=== PATIENT | female | born 1995 | race American Indian/Alaskan Native ===

== ENCOUNTER 2017-12-25 11:11 | Emergency (ER) | payer BC ==
[2017-12-25 11:16] VITALS: TEMP 98.2; O2SAT 100
[2017-12-25] MEDS ORDERED: Sodium Chloride 0.9% 1,000 ML IV SCH ×2 (12:15→14:00)
[2017-12-25 12:39] LABS: BASO % 0.4 % (0.0-2.0); EOS % 0.1 % (0.0-4.0); HEMOGLOBIN 12.3 g/dL (12.0-16.0); MEAN CELL VOLUME 92.6 fl (81.0-99.0); MEAN CORPUSCULAR HEMOGLOBIN 31.9 pg (27.0-31.0); MEAN CORPUSCULAR HGB CONC 34.4 g/dL (33.0-37.0); MEAN PLATELET VOLUME 6.8 fl (7.2-11.7); MONO # 0.4 K/uL (0.0-0.8); MONO % 4.7 % (0.0-10.0); NEUT % 82.8 % (50.0-75.0); NRBC % 0.1 % (0.0-0.0); RBC 3.87 Mil/uL (3.80-5.20); RED CELL DISTRIBUTION WIDTH 16.2 % (11.5-14.5); WHITE BLOOD COUNT 8.5 K/uL (4.8-10.8)
--- NOTE | 2017-12-25 12:40 | ED PDOC ---
HPI:Nausea, Vomiting, Diarrhea Time Seen by Provider: 12/25/17 11:47 Chief Complaint (Nursing): GI Problem Chief Complaint (Provider): GI Problem History Per: Patient History/Exam Limitations: no limitations Onset/Duration Of Symptoms: Days (x 1) Associated Symptoms: Nausea, Vomiting. denies: Fever, Chills, Diarrhea Additional Complaint(s): 22 years old, [id number] female presents to the ED today for evaluation of numerous episodes of vomiting associated with nausea since 20:00 yesterday. Patient states care compliance with her [employer] provider, Dr. Charlton , as this is her first . She denies fever, chills, abdominal pain, diarrhea, dysuria or hematuria. LMP: 10/25/2017 PCP: Hank Barakat Past Medical History Vital Signs: Last Vital Signs Temp 98.2 F 12/25/17 11:14 Pulse 87 12/25/17 11:14 Resp 16 12/25/17 11:14 BP 108/71 12/25/17 11:14 Pulse Ox 100 12/25/17 11:14 - Medical History PMH: No Chronic Diseases - Surgical History Surgical History: No Surg Hx - Family History Family History: States: Unknown Family Hx - Home Medications Home Medications: Ambulatory Orders Medication Instructions Recorded Ondansetron ODT [Zofran ODT] 4 mg PO Q6 PRN #20 tab 12/25/17 - Allergies Allergies/Adverse Reactions: Allergies Allergy/AdvReac Type Severity Reaction Status Date / Time No Known Allergies Allergy Verified 12/25/17 11:14 Review of Systems ROS Statement: Except As Marked, All Systems Reviewed And Found Negative Constitutional: Negative for: Fever, Chills Gastrointestinal: Positive for: Nausea, Vomiting. Negative for: Abdominal Pain , Diarrhea Genitourinary Female: Negative for: Dysuria, Hematuria, Other (Bilious urine) Physical Exam - Reviewed Nursing Documentation Reviewed: Yes Vital Signs Reviewed: Yes - Physical Exam Appears: Positive for: Non-toxic, No Acute Distress Head Exam: Positive for: ATRAUMATIC, NORMOCEPHALIC Skin: Positive for: Normal Color, Warm, Dry Eye Exam: Positive for: EOMI, PERRL Neck: Positive for: Painless ROM, Supple Cardiovascular/Chest: Positive for: Regular Rate, Rhythm Respiratory: Positive for: Normal Breath Sounds. Negative for: Decreased Breath Sounds, Accessory Muscle Use, Wheezing, Respiratory Distress Gastrointestinal/Abdominal: Positive for: Soft. Negative for: Tenderness, Organomegaly, Mass, Distended, Guarding, Rebound Back: Positive for: Normal Inspection. Negative for: L CVA Tenderness, R CVA Tenderness Extremity: Positive for: Normal ROM. Negative for: Pedal Edema Neurologic/Psych: Positive for: Alert, Oriented (x 3), Gait (steady in ED) - Laboratory Results Result Diagrams: 12/25/17 12:36 12/25/17 12:36 Urine POC: Positive Urine dip results: Positive for: Leukocyte Esterase (trace), Blood (trace), Ketones (40), Protein (100). Negative for: Nitrate, Glucose, Bilirubin - ECG O2 Sat by Pulse Oximetry: 100 (RA) Pulse Ox Interpretation: Normal Medical Decision Making Medical Decision Making: Initial Impression:Vomiting in Initial Plan: --Beta HCG --CMP -- test (urine, POC) --Urine dipstick (POC) --CBC --NS 1,000 ml IV --Zofran 8 mg PO 1315 Udip reviewed. U/A and urine culture ordered. 1400 Labs reviewed and grossly unremarkable. Carbon dioxide 21. Additional 1L NS ordered. Beta Quant: 122,820.00 1500 Patient reports mild nausea. Reglan 10mg ordered. 1730 Patient tolerating PO intake without difficulty. On re-evaluation, patient reports improvement of symptoms, denies any curent nausea, abdominal pain, of vaginal bleeding. On exam, patient remains AAOx3, in no acute distress. Lungs clear to auscultation, cardiac RRR, abdomen soft, non- tender, repeat neuro exam shows no focal findings. VSS. Repeat HR: 75 Repeat BP: 112/77 Repeat O2: 100% on RA Lab/Diagnostic results d/w the patient in great detail. Diagnosis of vomiting in d/w the patient. Patient states she has an upcoming OBGYN appt on 12/29/17. Based on history, exam and diagnostic results, plan will be for outpatient follow up. Patient instructed to follow-up with pmd / referral provided / the clinic in 1- 2 days without fail. Advised to take medication as prescribed. Return to the emergency room at any time for any new or worsening symptoms. Patient states she fully agrees with and understands discharge instructions. States that she agrees with the plan and disposition. Verbalized and repeated discharge instructions and plan. I have given the patient opportunity to ask any additional questions. Scribe Attestation: Documented by Sara Bosch acting as a scribe for Perlita Lentz PA-C. Provider Scribe Attestation: All medical record entries made by the Scribe were at my direction and personally dictated by me. I have reviewed the chart and agree that the record accurately reflects my personal performance of the history, physical exam, medical decision making, and the department course for this patient. I have also personally directed, reviewed, and agree with the discharge instructions and disposition. Disposition - Clinical Impression Clinical Impression: Vomiting affecting - Patient ED Disposition Is Patient to be Admitted: No Counseled Patient/Family Regarding: Studies Performed, Diagnosis, Need For Followup, Rx Given - Disposition Referrals: Hank Barakat MD [Staff Provider] - Disposition: Routine/Home Disposition Time: 17:42 Condition: STABLE Prescriptions: Ondansetron ODT [Zofran ODT] 4 mg PO Q6 PRN #20 tab PRN Reason: Nausea/Vomiting Instructions: Hyperemesis Gravidarum, Cutler Diet, Nausea and Vomiting of Forms: [employer] (Danish), [facility] ED School/Work Excuse Print Language: CHILEAN - POA Present On Arrival: None Results - Lab Results Lab Results: 12/25/17 12/25/17 12:36 12:36 WBC 8.5 RBC 3.87 Hgb 12.3 Hct 35.9 MCV 92.6 MCH 31.9 H MCHC 34.4 RDW 16.2 H Plt Count 387 MPV 6.8 L Neut % (Auto) 82.8 H Lymph % (Auto) 12.0 L [place] % (Auto) 4.7 Eos % (Auto) 0.1 Baso % (Auto) 0.4 Neut # (Auto) 7.0 Lymph # (Auto) 1.0 [place] # (Auto) 0.4 Eos # (Auto) 0.0 Baso # (Auto) 0.0 Sodium 141 Potassium 4.0 Chloride 101 Carbon Dioxide 21 L Anion Gap 23 H BUN 9 Creatinine 0.5 L Est GFR ( Amer) > 60 Est GFR (Non-Af Amer) > 60 Random Glucose 98 Calcium 10.1 Total Bilirubin 0.5 AST 35 ALT 36 Alkaline Phosphatase 45 Total Protein 9.1 H Albumin 4.5 Globulin 4.5 H Albumin/Globulin Ratio 1.0 Beta HCG, Quant [id number]
[2017-12-25 12:52] LABS: ALBUMIN 4.5 g/dL (3.5-5.0); ALT/SGPT 36 U/L (9-52); AST/SGOT 35 U/L (14-36); BLOOD UREA NITROGEN 9 mg/dl (7-17); CALCIUM 10.1 mg/dL (8.4-10.2); GFR AFRICAN-AMERICAN > 60; GFR NON-AFRICAN AMERICAN > 60
[2017-12-25] MEDS ORDERED: Metoclopramide 10 mg/10 ml Cup PO STA (15:25)
[2017-12-25 16:42] VITALS: BP 112/77; PULSE 75; RESP 14
== END 2017-12-25 18:11 | disposition home or self-care (01) ==
LOC: H.ER 11:11
DX: O21.9 Vomiting of pregnancy, unspecified (principal)
CPT/HCPCS: 80053; 81025; 84702; 85025; 87086; 99284; J7040

== ENCOUNTER 2018-01-01 11:52 | Inpatient (IN) | payer BC ==
[2018-01-01] MEDS ORDERED: Sodium Chloride 0.9% 1,000 ML IV STA (13:03)
--- NOTE | 2018-01-01 13:03 | ED PDOC ---
HPI: Female Pain <JdHank Scott - Last Filed: 01/01/18 15:12> Chief Complaint (Provider): VAGINAL BLEEDING History Per: Patient (22 Y/O G1PO LMP 11/04/2017 APPROX 9 WEEK GESTATION HERE FOR EVALUATION OF VAGINAL SPOTTING AND CRAMPY PAIN. DENIES ANY FEVERS/CHILLS.) <Saundra Peralta - Last Filed: 01/01/18 15:22> Time Seen by Provider: 01/01/18 13:02 Chief Complaint (Nursing): Female Genitourinary Past Medical History Vital Signs: Last Vital Signs Temp 98 F 01/01/18 12:18 Pulse 95 H 01/01/18 12:18 Resp 16 01/01/18 12:18 BP 123/72 01/01/18 12:18 Pulse Ox 100 01/01/18 13:03 <Hank Miles - Last Filed: 01/01/18 15:12> Reviewed: Historical Data, Nursing Documentation, Vital Signs Vital Signs: Last Vital Signs Temp 98 F 01/01/18 12:18 Pulse 95 H 01/01/18 12:18 Resp 16 01/01/18 12:18 BP 123/72 01/01/18 12:18 Pulse Ox 100 01/01/18 12:18 - Family History Family History: States: Unknown Family Hx <Saundra Peralta - Last Filed: 01/01/18 15:22> - Home Medications Home Medications: Ambulatory Orders Medication Instructions Recorded Ondansetron ODT [Zofran ODT] 4 mg PO Q6 PRN #20 tab 12/25/17 Nitrofurantoin Macrocrystals 100 mg PO BID #14 cap 01/01/18 [Macrobid] - Allergies Allergies/Adverse Reactions: Allergies Allergy/AdvReac Type Severity Reaction Status Date / Time No Known Allergies Allergy Verified 12/25/17 11:14 Review of Systems ROS Statement: Except As Marked, All Systems Reviewed And Found Negative <Saundra Peralta - Last Filed: 01/01/18 15:22> Physical Exam - Reviewed Nursing Documentation Reviewed: Yes Vital Signs Reviewed: Yes - Physical Exam Appears: Positive for: Well, Non-toxic, No Acute Distress Head Exam: Positive for: ATRAUMATIC, NORMAL INSPECTION, NORMOCEPHALIC Skin: Positive for: Normal Color, Warm, DRY Eye Exam: Positive for: EOMI, Normal appearance, PERRL ENT: Positive for: Normal ENT Inspection Neck: Positive for: Normal, Painless ROM Cardiovascular/Chest: Positive for: Regular Rate, Rhythm Respiratory: Positive for: CNT, Normal Breath Sounds Gastrointestinal/Abdominal: Positive for: Normal Exam, Soft Back: Positive for: Normal Inspection Extremity: Positive for: Normal ROM Neurologic/Psych: Positive for: Alert, Oriented <Saundra Peralta - Last Filed: 01/01/18 15:22> - Laboratory Results Result Diagrams: 01/01/18 13:40 01/01/18 14:30 <Hank Miles - Last Filed: 01/01/18 15:12> - Laboratory Results Result Diagrams: 01/01/18 13:40 01/01/18 14:30 Urine dip results: Positive for: Leukocyte Esterase, Blood - ECG O2 Sat by Pulse Oximetry: 100 (RA) Pulse Ox Interpretation: Normal - Progress ED Course And Treament: type O positive is architect US: 9 weeks 1 day: FHR 176; corpus luteal cyst NS 1 liter wide open <Saundra Peralta - Last Filed: 01/01/18 15:22> Medical Decision Making Medical Decision Making: Time: 1340 Plan: -- Type and Screen -- BMP -- Beta-HCG Quantitative -- CBC (with differentials) -- Sodium Chloride 500 mls/hr -- OB Transvaginal US Scribe Attestation: Documented by Elza Thompson, acting as a scribe for Dr. Saundra Peralta PA-C. Provider Scribe Attestation: All medical record entries made by the Scribe were at my direction and personally dictated by me. I have reviewed the chart and agree that the record accurately reflects my personal performance of the history, physical exam, medical decision making, and the department course for this patient. I have also personally directed, reviewed, and agree with the discharge instructions and disposition. <Saundra Peralta - Last Filed: 01/01/18 15:22> Disposition <Hank Miles - Last Filed: 01/01/18 15:12> - Patient ED Disposition Is Patient to be Admitted: No - Disposition Disposition: Routine/Home Disposition Time: 15:20 <Peralta,Setu B - Last Filed: 01/01/18 15:22> - Clinical Impression Clinical Impression: Threatened miscarriage, Corpus luteum cyst - Disposition Condition: FAIR Prescriptions: Nitrofurantoin Macrocrystals [Macrobid] 100 mg PO BID #14 cap Instructions: Bleeding With (DC), Ovarian Cyst (DC) Forms: [employer] ([place] Island[place]), [facility] ED School/Work Excuse
[2018-01-01 13:49] LABS: BASO # 0.1 K/uL (0.0-0.2); EOS # 0.1 K/uL (0.0-0.7); EOS % 1.3 % (0.0-4.0); HEMOGLOBIN 12.6 g/dL (12.0-16.0); LYMPH # 2.2 K/uL (1.0-4.3); LYMPH % 26.6 % (20.0-40.0); MEAN CORPUSCULAR HEMOGLOBIN 31.5 pg (27.0-31.0); MEAN CORPUSCULAR HGB CONC 33.6 g/dL (33.0-37.0); MONO # 0.7 K/uL (0.0-0.8); NEUT # 5.3 K/uL (1.8-7.0); NEUT % 63.1 % (50.0-75.0); NRBC % 0.1 % (0.0-0.0); RED CELL DISTRIBUTION WIDTH 16.1 % (11.5-14.5); WHITE BLOOD COUNT 8.5 K/uL (4.8-10.8)
[2018-01-01 14:54] LABS: BLOOD UREA NITROGEN 8 mg/dl (7-17); CALCIUM 9.6 mg/dL (8.4-10.2); GFR AFRICAN-AMERICAN > 60; GFR NON-AFRICAN AMERICAN > 60
--- NOTE | 2018-01-01 15:14 | US ---
PROCEDURE: OB Pelvic Ultrasound HISTORY: EVALUATION FOR THREATENED MISCARRIAGE COMPARISON: None available. FINDINGS: UTERUS: Single Live intrauterine gestation. CRL measures 26 mm equal to 9 weeks 3 days gestational age Gestational sac diameter measures 37 mm equal to 8 weeks 6 days gestational age. age (Ultrasound estimated): 9 weeks 1 day Date of delivery (Ultrasound estimated) : 08/05/2018 Heart rate: 176 bpm. Mary-gestational hemorrhage: None. 4 mm yolk sac visualized. Uterus measures 9.4 x 6.3 x 7.7 cm. No mass CERVIX: Long and closed. No cervical abnormality seen. RIGHT OVARY: Measures 2.8 x 1.6 x 1.8 cm. No mass. Normal flow. LEFT OVARY: Measures 4.0 x 2.0 x 2.1 cm. Normal flow. Corpus luteum measuring 2.0 x 1.7 x 1.7 cm identified. 2.3 cm physiologic cyst. 14 mm physiologic cyst. . FREE FLUID: Small amount of free fluid in cul-de-sac. OTHER FINDINGS: None. IMPRESSION: Single live intrauterine gestation of approximate 9 weeks 1 day gestational age. No subchorionic hemorrhage. heart rate 176. 4 mm yolk sac. Cervix long and closed.
[2018-01-01] MEDS: Lactated Ringer's 1,000 ML IV SCH (21:35)
[2018-01-01] MEDS ORDERED: Chlorhexidine Gluconate 1 APPL/PKT TP ONE (23:43)
[2018-01-02] MEDS: Lactated Ringer's 1,000 ML IV SCH (06:41)
[2018-01-02 08:05] LABS: HEMOGLOBIN 9.6 g/dL (12.0-16.0); MEAN CELL VOLUME 93.2 fl (81.0-99.0); MEAN CORPUSCULAR HEMOGLOBIN 31.7 pg (27.0-31.0); RBC 3.02 Mil/uL (3.80-5.20); RED CELL DISTRIBUTION WIDTH 16.2 % (11.5-14.5); WHITE BLOOD COUNT 12.7 K/uL (4.8-10.8)
[2018-01-02] MEDS ORDERED: cefOXitin IV 1 gm in Dextrose 1 GM/50 ML BAG IVPB ONE (08:05)
[2018-01-02] MEDS ORDERED: Oxytocin 20 units in LR 0 ML IV ONE (08:05)
[2018-01-02] MEDS ORDERED: Lidocaine 1% 5ml Abboject IV ONE (08:21)
[2018-01-02] MEDS ORDERED: Midazolam 2 MG/2 ML VIAL ONE (08:21)
[2018-01-02] MEDS ORDERED: Propofol 10 mg/ml Inj (20 ML) ONE (08:21)
[2018-01-02] MEDS ORDERED: Dexamethasone 4 mg/1 ml ONE (08:22)
[2018-01-02] MEDS ORDERED: Lactated Ringer's 1,000 ML IV ONE (09:03)
--- NOTE | 2018-01-02 09:03 | US ---
PROCEDURE: HISTORY: moderate bleeding in ED COMPARISON: TECHNIQUE: FINDINGS: Single live intrauterine gestation corresponding to 9 weeks gestational age. heart motion is observed. A portion of the gestational sac is noted in the lower uterine segment worrisome for an in progress. Recommend correlation with serial beta HCG levels and short-term interval follow-up as clinically indicated. IMPRESSION: As above.
[2018-01-02] MEDS ORDERED: Lactated Ringer's 1,000 ML IV SCH (09:45)
[2018-01-02 11:29] VITALS: RESP 18; O2SAT 100
[2018-01-02 14:19] VITALS: BP 118/69; PULSE 68; TEMP 98.6
--- NOTE | 2018-01-02 19:41 | OP ---
PROCEDURE DATE: 01/02/2018 PREOPERATIVE DIAGNOSIS: Incomplete . POSTOPERATIVE DIAGNOSIS: Incomplete . PROCEDURE: Evacuation and curettage of products. SURGEON: Hank Barakat MD TYPE OF ANESTHESIA: General anesthesia. ANESTHESIA ADMINISTERED BY: Wayne Ordoñez MD FINDINGS: Large amount of tissue coming to the os, which was sent to pathology for chromosome studies. DESCRIPTION OF PROCEDURE: With the patient in dorsal lithotomy position under general anesthesia, the patient was prepped and draped in the usual sterile manner. Straight catheter was used to emptied the bladder after which the weighted speculum placed in the posterior vagina and products are visible in the with sponge forceps and tissue was removed. Following this, a small light curettage was done to remove the any remaining tissue. Bleeding was minimal and the patient tolerated the procedure very well and was in satisfactory condition on her way to recovery room. Sample was sent to pathology for evaluation. Hank Barakat MD
== END 2018-01-02 15:25 | disposition home or self-care (01) | DRG 770 ==
LOC: H.ER 11:52 → H.ERHOLD 18:15 → H.MEDSURG1 20:57
PROVIDERS: ADMIT Specialist; ATTEND Specialist
PROC: 10D17ZZ Extraction of Products of Conception, Retained, Via Natural or Artificial Opening (ICD-10-PCS; principal; 2018-01-02 08:00)
DX: O03.4 Incomplete spontaneous abortion without complication (principal); N83.10 Corpus luteum cyst of ovary, unspecified side

== ENCOUNTER 2018-06-26 17:11 | Emergency (ER) | payer BC ==
--- NOTE | 2018-06-26 17:51 | ED PDOC ---
HPI: Abdomen Time Seen by Provider: 06/26/18 17:31 Chief Complaint (Nursing): Abdominal Pain History Per: Patient Additional Complaint(s): 23 yo female, no PMH, presents to ED for evaluation of crampy abdominal pain and spotting that started last night. Patient is 9 weeks , . 1st was spontaneous Ab ~ 8-9 w. Past Medical History Reviewed: Nursing Documentation, Vital Signs Vital Signs: Last Vital Signs Temp 98.8 F 06/26/18 17:29 Pulse 71 06/26/18 17:29 Resp 16 06/26/18 17:29 BP 111/75 06/26/18 17:29 Pulse Ox 100 06/26/18 17:29 - Medical History PMH: No Chronic Diseases Denies: HIV - Surgical History Surgical History: No Surg Hx - Family History Family History: States: Unknown Family Hx - Living Arrangements Living Arrangements: With Family - Social History Current smoker - smoking cessation education provided: No Alcohol: Social Drugs: Denies - Home Medications Home Medications: Ambulatory Orders Medication Instructions Recorded Ondansetron ODT [Zofran ODT] 4 mg PO Q6 PRN #20 tab 12/25/17 Nitrofurantoin Macrocrystals 100 mg PO BID #14 cap 01/01/18 [Macrobid] - Allergies Allergies/Adverse Reactions: Allergies Allergy/AdvReac Type Severity Reaction Status Date / Time No Known Allergies Allergy Verified 06/26/18 17:29 Review of Systems ROS Statement: Except As Marked, All Systems Reviewed And Found Negative Gastrointestinal: Positive for: Abdominal Pain Genitourinary Female: Positive for: Vaginal Bleeding Physical Exam - Reviewed Nursing Documentation Reviewed: Yes Vital Signs Reviewed: Yes - Physical Exam Appears: Positive for: Well, Non-toxic, No Acute Distress Head Exam: Positive for: ATRAUMATIC, NORMAL INSPECTION, NORMOCEPHALIC Skin: Positive for: Normal Color, Warm, DRY Eye Exam: Positive for: EOMI, Normal appearance, PERRL ENT: Positive for: Normal ENT Inspection Neck: Positive for: Normal, Painless ROM Cardiovascular/Chest: Positive for: Regular Rate, Rhythm Respiratory: Positive for: CNT, Normal Breath Sounds Gastrointestinal/Abdominal: Positive for: Normal Exam, Soft Back: Positive for: Normal Inspection Extremity: Positive for: Normal ROM Neurologic/Psych: Positive for: Alert, Oriented - Laboratory Results Result Diagrams: 06/26/18 18:05 - ECG O2 Sat by Pulse Oximetry: 100 Medical Decision Making Medical Decision Making: diagnostics ordered, pt declined analgesics at this time Case endorsed to PIERRE Virk at 1999 pending diagnostic review and re-eval Disposition - Clinical Impression Clinical Impression: Threatened - Patient ED Disposition Is Patient to be Admitted: Transfer of Care - Disposition Disposition: Transfer of Care Disposition Time: 19:37 Condition: STABLE Forms: [employer] (Persian)
[2018-06-26 19:08] LABS: BASO # 0.1 K/uL (0.0-0.2); BASO % 0.7 % (0.0-2.0); EOS # 0.2 K/uL (0.0-0.7); EOS % 1.5 % (0.0-4.0); HEMOGLOBIN 10.3 g/dL (12.0-16.0); LYMPH # 3.2 K/uL (1.0-4.3); LYMPH % 32.2 % (20.0-40.0); MEAN CELL VOLUME 88.6 fl (81.0-99.0); MEAN CORPUSCULAR HEMOGLOBIN 30.2 pg (27.0-31.0); MEAN CORPUSCULAR HGB CONC 34.1 g/dL (33.0-37.0); MONO # 0.9 K/uL (0.0-0.8); MONO % 8.7 % (0.0-10.0); NEUT # 5.7 K/uL (1.8-7.0); NEUT % 56.9 % (50.0-75.0); RBC 3.4 Mil/uL (3.80-5.20); RED CELL DISTRIBUTION WIDTH 18.5 % (11.5-14.5)
[2018-06-26 19:24] LABS: SQUAMOUS EPITHIAL 11 /hpf (0-5); URINE BACTERIA RARE (<OCC); URINE BILIRUBIN NEGATIVE (NEGATIVE); URINE BLOOD NEGATIVE (NEGATIVE); URINE CLARITY CLOUDY (Clear); URINE COLOR YELLOW (YELLOW); URINE GLUCOSE (UA) NEG (Normal); URINE HYALINE CAST 0-2 /hpf (0-2); URINE LEUKOCYTE ESTERASE MOD Leu/uL (Negative); URINE PROTEIN 30 mg/dL (NEGATIVE); URINE UROBILINOGEN 0.2-1.0 mg/dL (0.2-1.0)
[2018-06-26 20:47] VITALS: BP 125/63; PULSE 66; RESP 17; TEMP 97.6; O2SAT 98
--- NOTE | 2018-06-27 08:52 | US ---
Date of service: 06/26/2018 PROCEDURE: OB Pelvic Ultrasound HISTORY: 9 w, pain and bleeding 04/20/2018 LMP. COMPARISON: None available. FINDINGS: UTERUS: Gestational sac: There is a single live intrauterine gestation identified within a well-formed intrauterine gestational sac. Heart rate: 171 bpm. age (Ultrasound estimated): 9 weeks 0 days Mary-gestational hemorrhage: None. Date of delivery (Ultrasound estimated) : 01/29/2019 Uterus measures 10.1 x 7.9 x 7.0 cm. There is a 1.5 x 1.1 x 1.6 centimeter posterior fundal fibroid. CERVIX: Measures 3.8 cm. Long and closed. No cervical abnormality seen. RIGHT OVARY: Measures 2.3 x 1.3 x 2.3 cm. No mass lesion. Normal flow. LEFT OVARY: Measures 2.1 x 1.5 x 1.2 cm. No solid mass. Normal flow. FREE FLUID: None. OTHER FINDINGS: None. IMPRESSION: Single live intrauterine gestation with an estimated gestational age of 9 weeks and 0 days. Positive cardiac activity. No subchorionic hemorrhage. This agrees with preliminary report provided by the on-call radiologist.
== END 2018-06-26 20:17 | disposition home or self-care (01) ==
LOC: H.ER 17:11
DX: O20.0 Threatened abortion (principal); O23.41 Unspecified infection of urinary tract in pregnancy, first trimester; Z3A.09 9 weeks gestation of pregnancy

== ENCOUNTER 2018-06-27 07:22 | Emergency (ER) | payer BC ==
[2018-06-27 07:51] VITALS: O2SAT 100
--- NOTE | 2018-06-27 09:06 | ED PDOC ---
HPI: Female Pain Time Seen by Provider: 06/27/18 08:50 Chief Complaint (Nursing): Female Genitourinary Chief Complaint (Provider): Female Genitourinary History Per: Patient History/Exam Limitations: no limitations Onset/Duration Of Symptoms: Days (1) Quality Of Discomfort: denies: Cramping Additional Complaint(s): 23 years old 9 weeks female presents to ER for evaluation of vaginal spotting onset this morning. Patient reports symptoms stopped since coming to the ER and denies abdominal pain or cramping. She states she was seen here yesterday for the same complaint. PMD: Ortega Serrano Past Medical History Reviewed: Historical Data, Nursing Documentation, Vital Signs Vital Signs: Last Vital Signs Temp 97 F L 06/27/18 07:38 Pulse 63 06/27/18 07:38 Resp 18 06/27/18 07:38 BP 111/75 06/27/18 07:38 Pulse Ox 100 06/27/18 07:38 - Medical History PMH: No Chronic Diseases Denies: HIV - Surgical History Surgical History: No Surg Hx - Family History Family History: States: Unknown Family Hx - Social History Current smoker - smoking cessation education provided: No Alcohol: None Drugs: Denies - Home Medications Home Medications: Ambulatory Orders Medication Instructions Recorded Ondansetron ODT [Zofran ODT] 4 mg PO Q6 PRN #20 tab 12/25/17 Nitrofurantoin Macrocrystals 100 mg PO BID #14 cap 01/01/18 [Macrobid] Nitrofurantoin Macrocrystals 100 mg PO BID #10 cap 06/26/18 [Macrobid] - Allergies Allergies/Adverse Reactions: Allergies Allergy/AdvReac Type Severity Reaction Status Date / Time No Known Allergies Allergy Verified 06/27/18 07:34 Review of Systems ROS Statement: Except As Marked, All Systems Reviewed And Found Negative Gastrointestinal: Negative for: Abdominal Pain Genitourinary Female: Positive for: Vaginal Bleeding (spotting) Physical Exam - Reviewed Nursing Documentation Reviewed: Yes Vital Signs Reviewed: Yes - Physical Exam Appears: Positive for: Non-toxic, No Acute Distress Gastrointestinal/Abdominal: Positive for: Normal Exam, Soft. Negative for: Tenderness Neurologic/Psych: Positive for: Alert, Oriented (x3) - Laboratory Results Result Diagrams: 06/27/18 09:10 - ECG O2 Sat by Pulse Oximetry: 100 (RA) Pulse Ox Interpretation: Normal Medical Decision Making Medical Decision Making: Time: 855 Initial Plan: --Type and screen --Beta-HCG --CBC Scribe Attestation: Documented by Sara Bosch, acting as a scribe for Hank Miles MD. Provider Scribe Attestation: All medical record entries made by the Scribe were at my direction and personally dictated by me. I have reviewed the chart and agree that the record accurately reflects my personal performance of the history, physical exam, medical decision making, and the department course for this patient. I have also personally directed, reviewed, and agree with the discharge instructions and disposition. Disposition - Clinical Impression Clinical Impression: Threatened miscarriage - Patient ED Disposition Is Patient to be Admitted: No Counseled Patient/Family Regarding: Studies Performed, Diagnosis, Need For Followup - Disposition [facility]errals[facility] Disposition: Routine/Home Disposition Time: 10:31 Condition: FAIR Instructions: Threatened Miscarriage Forms: [employer] (Estonian)
[2018-06-27 09:29] LABS: BASO # 0.1 K/uL (0.0-0.2); BASO % 0.8 % (0.0-2.0); EOS # 0.1 K/uL (0.0-0.7); EOS % 0.8 % (0.0-4.0); HEMOGLOBIN 10.9 g/dL (12.0-16.0); LYMPH # 2.1 K/uL (1.0-4.3); LYMPH % 26.6 % (20.0-40.0); MEAN CELL VOLUME 88.6 fl (81.0-99.0); MEAN CORPUSCULAR HEMOGLOBIN 29.5 pg (27.0-31.0); MEAN CORPUSCULAR HGB CONC 33.3 g/dL (33.0-37.0); MEAN PLATELET VOLUME 6.9 fl (7.2-11.7); MONO # 0.5 K/uL (0.0-0.8); MONO % 6.6 % (0.0-10.0); NEUT # 5.2 K/uL (1.8-7.0); NEUT % 65.2 % (50.0-75.0); RBC 3.69 Mil/uL (3.80-5.20); WHITE BLOOD COUNT 7.9 K/uL (4.8-10.8)
[2018-06-27 10:52] VITALS: BP 110/70; PULSE 64; RESP 16; TEMP 97.6
== END 2018-06-27 10:53 | disposition home or self-care (01) ==
LOC: H.ER 07:22
DX: O20.0 Threatened abortion (principal); Z3A.09 9 weeks gestation of pregnancy

== ENCOUNTER 2018-06-29 19:17 | Inpatient (IN) | payer BC ==
[2018-06-29] MEDS: Dextrose 5%/0.45% NS 1,000 ML IV SCH ×3 (20:41→23:45)
[2018-06-29 20:47] LABS: BASO % 0.4 % (0.0-2.0); EOS % 0.1 % (0.0-4.0); HEMOGLOBIN 12.1 g/dL (12.0-16.0); LYMPH # 0.5 K/uL (1.0-4.3); LYMPH % 4.5 % (20.0-40.0); MEAN CORPUSCULAR HEMOGLOBIN 29.6 pg (27.0-31.0); MEAN CORPUSCULAR HGB CONC 33.6 g/dL (33.0-37.0); MONO # 0.1 K/uL (0.0-0.8); MONO % 1.3 % (0.0-10.0); NEUT # 9.4 K/uL (1.8-7.0); NEUT % 93.7 % (50.0-75.0); PLATELET COUNT 421 K/uL (130-400); RBC 4.09 Mil/uL (3.80-5.20); RED CELL DISTRIBUTION WIDTH 18.1 % (11.5-14.5)
[2018-06-29 21:01] LABS: ALBUMIN 4.8 g/dL (3.5-5.0); BLOOD UREA NITROGEN 12 mg/dl (7-17); CALCIUM 10.2 mg/dL (8.4-10.2); GFR NON-AFRICAN AMERICAN > 60
--- NOTE | 2018-06-29 21:01 | ED PDOC ---
HPI:Nausea, Vomiting, Diarrhea Time Seen by Provider: 06/29/18 19:46 Chief Complaint (Nursing): GI Problem Chief Complaint (Provider): GI problem History Per: Patient History/Exam Limitations: no limitations Onset/Duration Of Symptoms: Days (x1) Current Symptoms Are (Timing): Still Present Associated Symptoms: Nausea, Vomiting Additional Complaint(s): 23 year old female, GA 9 weeks, presents to the ED complaining of nausea and vomiting since this morning. Patient reports she has nonbloody and nonbilious emesis and is unable to count the number of vomits. She reports of having mild vaginal spotting ongoing for 2 days which she was evaluated for 2 days ago. OBGYN: Hank Barakat MD Past Medical History Reviewed: Historical Data, Nursing Documentation, Vital Signs Vital Signs: Last Vital Signs Temp 98.1 F 06/29/18 19:25 Pulse 96 H 06/29/18 19:25 Resp 16 06/29/18 19:25 BP 152/72 H 06/29/18 19:25 Pulse Ox 99 06/29/18 19:25 - Medical History PMH: No Chronic Diseases Denies: HIV - Surgical History Surgical History: No Surg Hx - Family History Family History: States: Unknown Family Hx - Social History Current smoker - smoking cessation education provided: No Alcohol: None Drugs: Denies - Home Medications Home Medications: Ambulatory Orders Medication Instructions Recorded Ondansetron ODT [Zofran ODT] 4 mg PO Q6 PRN #20 tab 12/25/17 Nitrofurantoin Macrocrystals 100 mg PO BID #14 cap 01/01/18 [Macrobid] Nitrofurantoin Macrocrystals 100 mg PO BID #10 cap 06/26/18 [Macrobid] - Allergies Allergies/Adverse Reactions: Allergies Allergy/AdvReac Type Severity Reaction Status Date / Time No Known Allergies Allergy Verified 06/29/18 19:25 Review of Systems ROS Statement: Except As Marked, All Systems Reviewed And Found Negative Gastrointestinal: Positive for: Nausea, Vomiting Genitourinary Female: Positive for: Vaginal Discharge (mild vaginal spotting) Physical Exam - Reviewed Nursing Documentation Reviewed: Yes Vital Signs Reviewed: Yes - Physical Exam Appears: Positive for: Non-toxic, No Acute Distress Head Exam: Positive for: ATRAUMATIC, NORMOCEPHALIC Skin: Positive for: Normal Color, Warm, Dry Eye Exam: Positive for: Normal appearance ENT: Positive for: Other (Mucous membranes dry) Neck: Positive for: Normal, Painless ROM Cardiovascular/Chest: Positive for: Regular Rate, Rhythm, Tachycardia Respiratory: Positive for: Normal Breath Sounds. Negative for: Wheezing, Respiratory Distress Gastrointestinal/Abdominal: Positive for: Normal Exam, Soft. Negative for: Tenderness Extremity: Positive for: Normal ROM Neurologic/Psych: Positive for: Alert, Oriented. Negative for: Motor/Sensory Deficits - Laboratory Results Result Diagrams: 06/29/18 20:38 06/29/18 20:38 - ECG O2 Sat by Pulse Oximetry: 99 (RA) Pulse Ox Interpretation: Normal Medical Decision Making Medical Decision Makin:46 Initial Impression: 23 y/o female with hyperemesis Initial Plan: --ABO/RH stat --Type and screen stat --Beta HCG --CMP --ED urine dipstick --CBC --Glucose --Dextrose 5% 1000mL IV --Reglan 10mg IV --Accucheck --Urinalysis 23:45 Labs reviewed, show no clinical significance with the exception of large amount of ketones in the urine. Patient continues to have nausea and is actively vomiting. Discussed case with patient's OBGYN (Dr. Barakat). Patient will be p laced on observation for hyperemesis gravidarum and for treatment of dehydration. Scribe Attestation: Documented by Mikey Mccormick acting as a scribe for Jose Mckeon MD. Documented by Perlita Morris acting as a scribe for Jose Mckeon MD. Provider Scribe Attestation: All medical record entries made by the Scribe were at my direction and personally dictated by me. I have reviewed the chart and agree that the record accurately reflects my personal performance of the history, physical exam, medical decision making, and the department course for this patient. I have also personally directed, reviewed, and agree with the discharge instructions and disposition. Disposition - Clinical Impression Clinical Impression: Hyperemesis gravidarum, Dehydration - Disposition Disposition Time: 23:00 Condition: FAIR
[2018-06-29 21:02] LABS: ALT/SGPT 24 U/L (9-52); AST/SGOT 51 U/L (14-36)
[2018-06-29 21:39] LABS: ANISOCYTOSIS SLIGHT; BANDS 3 % (0-2); LYMPHOCYTE 7 % (20-50); MONOCYTE 3 % (0-10); NEUTROPHIL 87 % (42-75); PLATELET ESTIMATE NORMAL (NORMAL); TOTAL CELLS COUNTED 100
[2018-06-29 21:40] LABS: MICROCYTOSIS SLIGHT
[2018-06-29 22:42] LABS: SQUAMOUS EPITHIAL 12 /hpf (0-5); URINE BACTERIA RARE (<OCC); URINE BILIRUBIN NEGATIVE (NEGATIVE); URINE BLOOD LARGE (NEGATIVE); URINE CLARITY CLOUDY (Clear); URINE COLOR YELLOW (YELLOW); URINE GLUCOSE (UA) >=500 mg/dL (Normal); URINE HYALINE CAST 0-2 /hpf (0-2); URINE LEUKOCYTE ESTERASE SMALL Leu/uL (Negative); URINE PROTEIN 30 mg/dL (NEGATIVE); URINE UROBILINOGEN 0.2-1.0 mg/dL (0.2-1.0)
[2018-06-30] MEDS ORDERED: Dextrose 5%/0.45% NS 1,000 ML IV SCH (07:00)
[2018-06-30] MEDS: Dextrose 5%/0.45% NS 1,000 ML IV SCH ×3 (07:00→07:38)
[2018-06-30] MEDS ORDERED: Lactated Ringer's 1,000 ML IV SCH (13:00)
[2018-06-30] MEDS: Lactated Ringer's 1,000 ML IV SCH (13:35)
[2018-07-01] MEDS: Lactated Ringer's 1,000 ML IV SCH ×3 (00:42→10:00)
--- NOTE | 2018-07-01 08:08 | CP.PCM.PN ---
Subjective - Date & Time of Evaluation Date of Evaluation: 07/01/18 Time of Evaluation: 08:06 - Subjective Subjective: feels better today Objective - Vital Signs/Intake and Output Vital Signs (last 24 hours): Temp Pulse Resp BP Pulse Ox 98.6 F 63 18 112/73 100 07/01/18 04:00 07/01/18 04:00 07/01/18 04:00 07/01/18 04:00 06/30/18 07:50 - Medications Medications: Current Medications Acetaminophen (Tylenol 325mg Tab) 650 mg PO Q6 PRN PRN Reason: 1825 Lactated Ringer's (Lactated Ringer's) 1,000 mls @ 200 mls/hr IV .Q5H DANNY Last Admin: 07/01/18 05:43 Dose: 200 mls/hr Ondansetron HCl (Zofran Inj) 4 mg IVP Q8 PRN PRN Reason: Nausea/Vomiting Last Admin: 07/01/18 06:22 Dose: 4 mg - Labs Labs: 06/29/18 20:38 06/29/18 20:38 - Additional Findings Additional findings: v.s stable afebrile still vomiting after attempting to eat or drink Assessment and Plan - Assessment and Plan (Free Text) Assessment: will contiue present care will also change medication Plan: continue present care change interval for medication
[2018-07-01 19:18] LABS: HEMOGLOBIN 10.1 g/dL (12.0-16.0); MEAN CELL VOLUME 88.2 fl (81.0-99.0); MEAN CORPUSCULAR HEMOGLOBIN 29.8 pg (27.0-31.0); MEAN CORPUSCULAR HGB CONC 33.8 g/dL (33.0-37.0); RBC 3.39 Mil/uL (3.80-5.20); RED CELL DISTRIBUTION WIDTH 17.4 % (11.5-14.5); WHITE BLOOD COUNT 8.6 K/uL (4.8-10.8)
[2018-07-01 19:54] LABS: ALB/GLOB RATIO 0.9 (1.0-2.1); ALBUMIN 3.6 g/dL (3.5-5.0); ALT/SGPT 28 U/L (9-52); AST/SGOT 27 U/L (14-36); BLOOD UREA NITROGEN 3 mg/dl (7-17); CALCIUM 9.5 mg/dL (8.4-10.2); GFR NON-AFRICAN AMERICAN > 60
[2018-07-01 20:10] LABS: SQUAMOUS EPITHIAL < 1 /hpf (0-5); URINE BILIRUBIN NEGATIVE (NEGATIVE); URINE BLOOD NEGATIVE (NEGATIVE); URINE CLARITY CLEAR (Clear); URINE COLOR STRAW (YELLOW); URINE GLUCOSE (UA) NEG (Normal); URINE LEUKOCYTE ESTERASE NEG Leu/uL (Negative); URINE PROTEIN NEGATIVE (NEGATIVE); URINE UROBILINOGEN 0.2-1.0 mg/dL (0.2-1.0)
[2018-07-02] MEDS: Lactated Ringer's 1,000 ML IV SCH ×4 (00:09→19:56)
[2018-07-02] MEDS ORDERED: Potassium CL 10mEq/100ml 100 ML IVPB ONE (12:11)
--- NOTE | 2018-07-02 12:19 | CP.PCM.PN ---
Subjective - Date & Time of Evaluation Date of Evaluation: 07/02/18 Time of Evaluation: 12:20 Objective - Vital Signs/Intake and Output Vital Signs (last 24 hours): Temp Pulse Resp BP Pulse Ox 99.4 F 76 18 118/64 100 07/02/18 08:00 07/02/18 08:00 07/02/18 08:00 07/02/18 08:00 06/30/18 07:50 - Medications Medications: Current Medications Acetaminophen (Tylenol 325mg Tab) 650 mg PO Q6 PRN PRN Reason: 1825 Lactated Ringer's (Lactated Ringer's) 1,000 mls @ 200 mls/hr IV .Q5H DANNY Last Admin: 07/02/18 04:19 Dose: 200 mls/hr Potassium Chloride (Potassium Chloride 10 Meq/100 Ml) 100 mls @ 100 mls/hr IVPB ONCE ONE Stop: 07/02/18 13:10 Ondansetron HCl (Zofran Inj) 4 mg IVP Q6 PRN PRN Reason: Nausea/Vomiting Last Admin: 07/02/18 11:19 Dose: 4 mg - Labs Labs: 07/01/18 19:13 07/01/18 19:13
--- NOTE | 2018-07-02 12:22 | CP.PCM.PN ---
Subjective - Date & Time of Evaluation Date of Evaluation: 07/02/18 Time of Evaluation: 12:24 Objective - Vital Signs/Intake and Output Vital Signs (last 24 hours): Temp Pulse Resp BP Pulse Ox 99.4 F 76 18 118/64 100 07/02/18 08:00 07/02/18 08:00 07/02/18 08:00 07/02/18 08:00 06/30/18 07:50 - Medications Medications: Current Medications Acetaminophen (Tylenol 325mg Tab) 650 mg PO Q6 PRN PRN Reason: 1825 Lactated Ringer's (Lactated Ringer's) 1,000 mls @ 200 mls/hr IV .Q5H DANNY Last Admin: 07/02/18 04:19 Dose: 200 mls/hr Potassium Chloride (Potassium Chloride 10 Meq/100 Ml) 100 mls @ 100 mls/hr IVPB ONCE ONE Stop: 07/02/18 13:10 Ondansetron HCl (Zofran Inj) 4 mg IVP Q6 PRN PRN Reason: Nausea/Vomiting Last Admin: 07/02/18 11:19 Dose: 4 mg - Labs Labs: 07/01/18 19:13 07/01/18 19:13 Assessment and Plan - Assessment and Plan (Free Text) Assessment: stable tolerated broth this am vs stable afebrile Plan: continue present care advance diet as tolerated will give potassium today
[2018-07-03] MEDS: Lactated Ringer's 1,000 ML IV SCH ×4 (01:07→19:42)
[2018-07-03 07:00] LABS: ALB/GLOB RATIO 0.9 (1.0-2.1); ALBUMIN 3.4 g/dL (3.5-5.0); ALT/SGPT 23 U/L (9-52); AST/SGOT 23 U/L (14-36); BLOOD UREA NITROGEN 4 mg/dl (7-17); CALCIUM 9.1 mg/dL (8.4-10.2); GFR NON-AFRICAN AMERICAN > 60
[2018-07-04] MEDS: Lactated Ringer's 1,000 ML IV SCH ×5 (00:42→17:30)
--- NOTE | 2018-07-04 12:07 | CP.PCM.PN ---
Subjective - Date & Time of Evaluation Date of Evaluation: 07/04/18 Time of Evaluation: 12:05 - Subjective Subjective: " I want to eat solid food now" Denies any vomiting today but had some yesterday Denies any vaginal bleeding spotting or discharge. Denies SOB, chest or leg pains Objective - Vital Signs/Intake and Output Vital Signs (last 24 hours): Temp Pulse Resp BP Pulse Ox 97.3 F L 63 20 116/67 100 07/04/18 08:00 07/04/18 08:00 07/04/18 08:00 07/04/18 08:00 06/30/18 07:50 - Medications Medications: Current Medications Acetaminophen (Tylenol 325mg Tab) 650 mg PO Q6 PRN PRN Reason: 1825 Lactated Ringer's (Lactated Ringer's) 1,000 mls @ 200 mls/hr IV .Q5H DANNY Last Admin: 07/04/18 05:42 Dose: 200 mls/hr Metoclopramide HCl (Reglan) 10 mg IVP Q6 PRN PRN Reason: Nausea/Vomiting Ondansetron HCl (Zofran Inj) 4 mg IVP Q6 PRN PRN Reason: Nausea/Vomiting Last Admin: 07/03/18 08:07 Dose: 4 mg - Labs Labs: 07/01/18 19:13 07/03/18 05:30 - Constitutional Appears: Well, No Acute Distress - Head Exam Head Exam: ATRAUMATIC - Neck Exam Neck Exam: Full ROM - Respiratory Exam Respiratory Exam: NORMAL BREATHING PATTERN - GI/Abdominal Exam Additional comments: soft not distended no rebournd no guarding - Extremities Exam Additional comments: no edema or calf tenderness - Neurological Exam Neurological Exam: Alert, Awake, Oriented x3 Assessment and Plan - Assessment and Plan (Free Text) Assessment: hyperemesis gravidarum Plan: Discussed with pt and witnessed by nurse that if diet is advanced too quickly vomiting is most likely to ensue and I carefully explained plan to advance slowly since some improvement but patient categorically refuses and demands to have regular diet now, again explained to her this is not advisible but she demands it and will comply to her wshes and is aware of possible regress in her progress Understands and refers will take her chances Advanced diet as tolerated as per pt demands.
--- NOTE | 2018-07-05 01:51 | CON ---
DATE: 07/04/2018 HISTORY OF PRESENT ILLNESS: This is a 23-year-old -[place] woman who has just completed 10th week of gestation, was admitted to the hospital with persistent nausea and vomiting since this past Thursday. Of note is that the patient stated that she was started on antibiotics . She took them for three days prior to the onset of this. Antibiotic was given for UTI. I wonder if that may have been something to do with exacerbating her nausea and vomiting. She apparently is having nausea and vomiting. She did not have any hematemesis or any abdominal pain. There was no diarrhea or evidence of bleeding. Since she received the antiemetic yesterday morning, she has not received any other Reglan or Zofran, and she feels much, much better by the time I saw her this afternoon. She has just tolerated her regular lunch without any nausea or vomiting. She has no pain. She states that she feels absolutely and completely within normal limits. MEDICATIONS AT HOME: She was on the vitamins. She had taken the antibiotics for couple of days. ALLERGIES: NO KNOWN DRUG ALLERGIES. PAST MEDICAL HISTORY: Unremarkable. She did have one prior for which she had some mild nausea and vomiting and said as long as she lost that baby to a miscarriage. PAST SURGICAL HISTORY: She has no surgical history. FAMILY HISTORY: Noncontributory. SOCIAL HISTORY: She smokes occasionally, but has not smoked since she found that she was . Denies any alcohol or drug use. PHYSICAL EXAMINATION: GENERAL: A well-developed, thin, black woman. Awake, alert, and oriented x3. No acute distress. VITAL SIGNS: Stable. She is afebrile. ABDOMEN: Soft with good bowel sounds. There is no appreciable tenderness or distention. LABORATORY DATA: On 07/01/2018, her CBC is remarkable for H and H of 10.1 and 29.9, and platelet count was normal. Yesterday, her SMA7 was unremarkable. Her LFTs were within normal limits. IMPRESSION AND PLAN: A 23-year-old woman who is at 10th week of gestation with nausea and vomiting, more than likely related to , but may have been exacerbated by the use of antibiotics that have been taking just before this that started last Thursday. She has not received any antiemetic or antinausea medications since yesterday morning. She feels significantly better and tolerating her regular diet. At this point in time, I am taking a liberty of ordering a lipase to just make sure that is within normal limits, which I suspect that will be given her lack of symptomatology. If she tolerates dinner, I would be comfortable discharging the patient home tonight. She can just follow up on outpatient basis and use as needed Reglan orally if she does have any further nausea and vomiting. I will relay this to the nurse. I speak with Dr. Rivas who is the [employer] on this case. Apparently, he wanted to keep the patient until tomorrow, which is fine with me as well as long as she continues to be asymptomatic and comfortable with discharging home. Yordy Mejia MD
[2018-07-05] MEDS: Lactated Ringer's 1,000 ML IV SCH (05:45)
--- NOTE | 2018-07-05 08:07 | CP.PCM.PN ---
Subjective - Date & Time of Evaluation Date of Evaluation: 07/05/18 Time of Evaluation: 08:05 - Subjective Subjective: no vomiting and tolerating reg diet well Denies any bleeding or spotting Objective - Vital Signs/Intake and Output Vital Signs (last 24 hours): Temp Pulse Resp BP Pulse Ox 98.5 F 68 18 101/62 100 07/05/18 06:52 07/05/18 06:52 07/05/18 06:52 07/05/18 06:52 06/30/18 07:50 - Medications Medications: Current Medications Acetaminophen (Tylenol 325mg Tab) 650 mg PO Q6 PRN PRN Reason: 1825 Lactated Ringer's (Lactated Ringer's) 1,000 mls @ 200 mls/hr IV .Q5H DANNY Last Admin: 07/05/18 05:45 Dose: 200 mls/hr Metoclopramide HCl (Reglan) 10 mg IVP Q6 PRN PRN Reason: Nausea/Vomiting Ondansetron HCl (Zofran Inj) 4 mg IVP Q6 PRN PRN Reason: Nausea/Vomiting Last Admin: 07/03/18 08:07 Dose: 4 mg - Labs Labs: 07/01/18 19:13 07/03/18 05:30 - Constitutional Appears: Well, No Acute Distress - Head Exam Head Exam: ATRAUMATIC - Neck Exam Neck Exam: Full ROM - Respiratory Exam Respiratory Exam: NORMAL BREATHING PATTERN - GI/Abdominal Exam Additional comments: soft ND NT no rebound or guarding - Extremities Exam Additional comments: no leg edema or calf tenderness - Neurological Exam Neurological Exam: Alert, Awake, Oriented x3 Assessment and Plan - Assessment and Plan (Free Text) Assessment: improved Plan: Dr Mejia note noted and appreciated D/C home on bed and pelvic rest and continue po antiemetics Instructions given and jameson murphy in office 1 wk
--- NOTE | 2018-07-05 08:12 | CP.PCM.DIS ---
Provider - Provider Date of Admission: 07/01/18 10:57 Attending physician: Hank Barakat MD Consults: GI Time Spent in preparation of Discharge (in minutes): 5 Diagnosis - Discharge Diagnosis (1) Dehydration Status: Acute (2) Hyperemesis gravidarum Status: Acute (3) Vomiting affecting Status: Acute Hospital Course - Lab Results Lab Results: Most Recent Lab Values WBC 8.6 K/uL (4.8-10.8) 07/01/18 19:13 RBC 3.39 Mil/uL (3.80-5.20) L 07/01/18 19:13 Hgb 10.1 g/dL (12.0-16.0) L D 07/01/18 19:13 Hct 29.9 % (34.0-47.0) L 07/01/18 19:13 MCV 88.2 fl (81.0-99.0) 07/01/18 19:13 MCH 29.8 pg (27.0-31.0) 07/01/18 19:13 MCHC 33.8 g/dL (33.0-37.0) 07/01/18 19:13 RDW 17.4 % (11.5-14.5) H 07/01/18 19:13 Plt Count 341 K/uL (130-400) 07/01/18 19:13 MPV 7.0 fl (7.2-11.7) L 06/29/18 20:38 Neut % (Auto) 93.7 % (50.0-75.0) H 06/29/18 20:38 Lymph % (Auto) 4.5 % (20.0-40.0) L 06/29/18 20:38 Andrew % (Auto) 1.3 % (0.0-10.0) 06/29/18 20:38 Eos % (Auto) 0.1 % (0.0-4.0) 06/29/18 20:38 Baso % (Auto) 0.4 % (0.0-2.0) 06/29/18 20:38 Neut # (Auto) 9.4 K/uL (1.8-7.0) H 06/29/18 20:38 Lymph # (Auto) 0.5 K/uL (1.0-4.3) L 06/29/18 20:38 Andrew # (Auto) 0.1 K/uL (0.0-0.8) 06/29/18 20:38 Eos # (Auto) 0.0 K/uL (0.0-0.7) 06/29/18 20:38 Baso # (Auto) 0.0 K/uL (0.0-0.2) 06/29/18 20:38 Neutrophils % (Manual) 87 % (42-75) H 06/29/18 20:38 Band Neutrophils % 3 % (0-2) H 06/29/18 20:38 Lymphocytes % (Manual) 7 % (20-50) L 06/29/18 20:38 Monocytes % (Manual) 3 % (0-10) 06/29/18 20:38 Platelet Estimate Normal (NORMAL) 06/29/18 20:38 Anisocytosis (manual) Slight 06/29/18 20:38 Microcytosis (manual) Slight 06/29/18 20:38 Sodium 135 mmol/l (132-148) 07/03/18 05:30 Potassium 3.7 MMOL/L (3.6-5.0) 07/03/18 05:30 Chloride 103 mmol/L (98-107) 07/03/18 05:30 Carbon Dioxide 24 mmol/L (22-30) 07/03/18 05:30 Anion Gap 12 (10-20) 07/03/18 05:30 BUN 4 mg/dl (7-17) L 07/03/18 05:30 Creatinine 0.6 mg/dl (0.7-1.2) L 07/03/18 05:30 Est GFR ( Amer) > 60 07/03/18 05:30 Est GFR (Non-Af Amer) > 60 07/03/18 05:30 POC Glucose (mg/dL) 115 mg/dL (65-110) H 06/29/18 20:43 Random Glucose 71 mg/dL (65-105) 07/03/18 05:30 Calcium 9.1 mg/dL (8.4-10.2) 07/03/18 05:30 Total Bilirubin 0.6 mg/dl (0.2-1.3) 07/03/18 05:30 AST 23 U/L (14-36) 07/03/18 05:30 ALT 23 U/L (9-52) 07/03/18 05:30 Alkaline Phosphatase 33 U/L (38-126) L 07/03/18 05:30 Total Protein 7.3 G/DL (6.3-8.2) 07/03/18 05:30 Albumin 3.4 g/dL (3.5-5.0) L 07/03/18 05:30 Globulin 3.9 gm/dL (2.2-3.9) 07/03/18 05:30 Albumin/Globulin Ratio 0.9 (1.0-2.1) L 07/03/18 05:30 Lipase 130 U/L (23-300) 07/04/18 15:20 Beta HCG, Quant 726445.00 mIU/mL 06/29/18 20:38 Urine Color Straw (YELLOW) 07/01/18 20:01 Urine Clarity Clear (Clear) 07/01/18 20:01 Urine pH 7.0 (5.0-8.0) 07/01/18 20:01 Ur Specific Solen < 1.005 (1.003-1.030) 07/01/18 20:01 Urine Protein Negative mg/dL (NEGATIVE) 07/01/18 20:01 Urine Glucose (UA) Neg mg/dL (Normal) 07/01/18 20: Urine Ketones 20 mg/dL (NEGATIVE) 07/01/18 20:01 Urine Blood Negative (NEGATIVE) 07/01/18 20:01 Urine Nitrate Negative (NEGATIVE) 07/01/18 20:01 Urine Bilirubin Negative (NEGATIVE) 07/01/18 20:01 Urine Urobilinogen 0.2-1.0 mg/dL (0.2-1.0) 07/01/18 20:01 Ur Leukocyte Esterase Neg Yu/uL (Negative) 07/01/18 20:01 Urine RBC (Auto) 1 /hpf (0-3) 07/01/18 20:01 Urine Microscopic WBC 1 /hpf (0-5) 07/01/18 20:01 Ur Squamous Epith Cells < 1 /hpf (0-5) 07/01/18 20:01 Urine Bacteria Rare (<OCC) 06/29/18 22:21 Hyaline Casts 0-2 /hpf (0-2) 06/29/18 22:21 - Hospital Course Hospital Course: uneventful Discharge Exam - Head Exam Head Exam: ATRAUMATIC Discharge Plan - Follow Up Plan Condition: GOOD Additional Instructions: pelvic and bed rest and continue po antiemetics and will follow in office 1 mwk
[2018-07-05 08:55] VITALS: BP 106/67; PULSE 73; RESP 20; TEMP 106; O2SAT 73
== END 2018-07-05 12:31 | disposition home or self-care (01) | DRG 832 ==
LOC: H.ER 19:17 → H.ERHOLD 23:27 → H.OB/GYN 06-30 08:20 → OBSVTOIN 07-01 10:57
PROVIDERS: ADMIT Specialist; ATTEND Specialist
DX: O21.0 Mild hyperemesis gravidarum (principal); O23.41 Unspecified infection of urinary tract in pregnancy, first trimester; Z3A.09 9 weeks gestation of pregnancy; E86.0 Dehydration; O99.331 Smoking (tobacco) complicating pregnancy, first trimester

== ENCOUNTER 2018-07-28 14:17 | Inpatient (IN) | payer BC ==
[2018-07-28] MEDS ORDERED: Sodium Chloride 0.9% 1,000 ML IV STA (15:04)
--- NOTE | 2018-07-28 15:21 | ED PDOC ---
HPI:Nausea, Vomiting, Diarrhea Time Seen by Provider: 07/28/18 14:55 Chief Complaint (Nursing): GI Problem Chief Complaint (Provider): Nausea and Vomiting History Per: Patient History/Exam Limitations: no limitations Onset/Duration Of Symptoms: Hrs (since 11pm last night) Current Symptoms Are (Timing): Still Present Additional Complaint(s): Patient is a 23 year old female, approximately 14 weeks , who presents for evaluation of persistent nausea and vomiting since last night. Patient reports nonbloody, nonbilious episodes of vomiting too numerous to count. Patient took no medications prior to arrival. Patient notes that she was seen for the same and admitted on 07/01/18 for similar symptoms. Patient report prior care with demonstrated IUP on U/S. This is the patients 2nd , the first was a miscarriage at ~8weeks. Patient denies any abdominal pain, vaginal bleeding, fever, vaginal discharge, SOB/cough, chest pain. OBGYN: Yuval LMP: 04/20/18 Past Medical History Reviewed: Historical Data, Nursing Documentation, Vital Signs Vital Signs: Last Vital Signs Temp 97.7 F 07/28/18 14:26 Pulse 99 H 07/28/18 14:26 Resp 18 07/28/18 14:26 BP 109/79 07/28/18 14:26 Pulse Ox 99 07/28/18 14:26 - Medical History PMH: No Chronic Diseases - Surgical History Surgical History: No Surg Hx - Family History Family History: States: Unknown Family Hx - Home Medications Home Medications: Ambulatory Orders Medication Instructions Recorded RX: No Known Home Med 06/30/18 - Allergies Allergies/Adverse Reactions: Allergies Allergy/AdvReac Type Severity Reaction Status Date / Time No Known Allergies Allergy Verified 07/28/18 14:30 Review of Systems ROS Statement: Except As Marked, All Systems Reviewed And Found Negative Gastrointestinal: Positive for: Nausea, Vomiting Physical Exam - Reviewed Nursing Documentation Reviewed: Yes Vital Signs Reviewed: Yes - Physical Exam Appears: Positive for: Well, Non-toxic, Uncomfortable Head Exam: Positive for: ATRAUMATIC, NORMOCEPHALIC Skin: Positive for: Normal Color, Warm, Dry Eye Exam: Positive for: EOMI, PERRL ENT: Positive for: Other (Airway patent, (-) stridor. Mucus membranes dry. ) Neck: Positive for: Painless ROM, Supple Cardiovascular/Chest: Positive for: Regular Rate, Rhythm Respiratory: Positive for: Normal Breath Sounds Gastrointestinal/Abdominal: Positive for: Bowel Sounds (normal x4), Soft. Negative for: Tenderness, Distended, Guarding Back: Negative for: L CVA Tenderness, R CVA Tenderness Extremity: Positive for: Normal ROM. Negative for: Deformity Neurologic/Psych: Positive for: Alert, Oriented (x3), Gait (steady). Negative for: Aphasia, Facial Droop - Laboratory Results Result Diagrams: 07/28/18 16:00 07/28/18 16:00 - ECG O2 Sat by Pulse Oximetry: 99 (RA) Pulse Ox Interpretation: Normal Medical Decision Making Medical Decision Making: Initial Impression: hyperemesis gravidarum Plan: -IV access -NS 1L bolus -CBC -CMP -Beta Quant -Lipase -Upreg -Urine Dipstick -Zofran 8mg IVP 1705 Labs reviewed and grossly unremarkable. Additional 1L NS bolus ordered. Beta Quant: 98,221.00 1720 Patient reports persistent nausea at this time. Patient reports she vomited 20 minutes ago. Reglan 10mg IVP ordered. 1920 Patient sleeping comfortably on re-evaluation. 1944 Case endorsed to Nathen Paris PA-C pending re-evaluation and further disposition. Disposition - Clinical Impression Clinical Impression: Hyperemesis gravidarum, Dehydration - Patient ED Disposition Is Patient to be Admitted: Transfer of Care (Case endorsed to Nathen Paris PA-C pending re-evaluation and further disposition.) - Disposition Disposition: Transfer of Care (Case endorsed to Nathen Paris PA-C pending re- evaluation and further disposition.) Disposition Time: 19:45 Condition: FAIR - POA Present On Arrival: None
[2018-07-28 16:15] LABS: BASO % 0.5 % (0.0-2.0); EOS % 0.1 % (0.0-4.0); HEMOGLOBIN 11.3 g/dL (12.0-16.0); LYMPH # 0.6 K/uL (1.0-4.3); LYMPH % 7.4 % (20.0-40.0); MEAN CELL VOLUME 89.9 fl (81.0-99.0); MEAN CORPUSCULAR HEMOGLOBIN 30.5 pg (27.0-31.0); MEAN PLATELET VOLUME 6.7 fl (7.2-11.7); MONO # 0.1 K/uL (0.0-0.8); MONO % 1.6 % (0.0-10.0); NEUT # 7.5 K/uL (1.8-7.0); NEUT % 90.4 % (50.0-75.0); NRBC % 4.4 % (0.0-0.0); PLATELET COUNT 408 K/uL (130-400); RBC 3.71 Mil/uL (3.80-5.20); RED CELL DISTRIBUTION WIDTH 17.5 % (11.5-14.5); WHITE BLOOD COUNT 8.3 K/uL (4.8-10.8)
[2018-07-28 16:31] LABS: ALBUMIN 4.6 g/dL (3.5-5.0); ALT/SGPT 18 U/L (9-52); AST/SGOT 30 U/L (14-36); BLOOD UREA NITROGEN 8 mg/dl (7-17); CALCIUM 10.1 mg/dL (8.4-10.2); GFR NON-AFRICAN AMERICAN > 60; LIPASE 47 U/L (23-300)
[2018-07-28] MEDS ORDERED: Sodium Chloride 0.9% 1,000 ML IV SCH (17:15)
[2018-07-28 18:55] LABS: ANISOCYTOSIS SLIGHT; BANDS 2 % (0-2); LYMPHOCYTE 10 % (20-50); MONOCYTE 6 % (0-10); NEUTROPHIL 82 % (42-75); PLATELET ESTIMATE SLIGHTLY INCREASED (NORMAL); TOTAL CELLS COUNTED 100
[2018-07-28 18:56] LABS: HYPOCHROMIC SLIGHT
[2018-07-28] MEDS ORDERED: Dextrose 5%/Lactated Ringer's 1,000 ML IV SCH ×2 (20:00→21:26)
[2018-07-28 20:46] LABS: SQUAMOUS EPITHIAL 21 /hpf (0-5); URINE BACTERIA OCC (<OCC); URINE BILIRUBIN NEGATIVE (NEGATIVE); URINE BLOOD SMALL (NEGATIVE); URINE CLARITY CLOUDY (Clear); URINE COLOR AMBER (YELLOW); URINE GLUCOSE (UA) NEG (Normal); URINE LEUKOCYTE ESTERASE MOD Leu/uL (Negative); URINE PROTEIN 100 mg/dL (NEGATIVE); URINE UROBILINOGEN 0.2-1.0 mg/dL (0.2-1.0)
--- NOTE | 2018-07-28 21:32 | ED PDOC ---
- Laboratory Results Result Diagrams: 07/28/18 16:00 07/28/18 16:00 - ECG O2 Sat by Pulse Oximetry: 100 - Progress ED Course And Treament: Case endorsed to information writer from [facility] pending u/a, re-eval 20:00 Patient states nausea improved. Will hang more IVF and PO challenge 21:15 Patient actively vomiting Case discussed with Dr. Garcia, will place in observation for IV hydration. Recommends increasing fluid rate to 150ml/hr D5LR. Will give IV rocephin dose for UTI Disposition - Clinical Impression Clinical Impression: Hyperemesis gravidarum, Dehydration, UTI (urinary tract infection) - POA Present On Arrival: None - Disposition Disposition: Hospitalized as Observation Patient Disposition Time: 21:32 Condition: FAIR
[2018-07-28] MEDS ORDERED: cefTRIAXone (Rocephin) 1 gm Inj ONE (23:20)
[2018-07-29] MEDS: Lactated Ringer's 1,000 ML IV SCH ×3 (02:30→19:58)
[2018-07-29 09:25] LABS: ALB/GLOB RATIO 0.9 (1.0-2.1); ALBUMIN 3.2 g/dL (3.5-5.0); BILIRUBIN,DIRECT 0.1 mg/ml (0.0-0.4)
[2018-07-30] MEDS: Lactated Ringer's 1,000 ML IV SCH ×3 (02:58→23:48)
--- NOTE | 2018-07-30 09:05 | CP.PCM.PN ---
Subjective - Date & Time of Evaluation Date of Evaluation: 07/30/18 Time of Evaluation: 09:03 - Subjective Subjective: vomited x3 again last night Denies any vaginal bleeding or pains No C/F Objective - Vital Signs/Intake and Output Vital Signs (last 24 hours): Temp Pulse Resp BP Pulse Ox 98.7 F 82 20 112/64 100 07/30/18 05:00 07/30/18 05:00 07/30/18 05:00 07/30/18 05:00 07/29/18 01:21 - Medications Medications: Current Medications Lactated Ringer's (Lactated Ringer's) 1,000 mls @ 150 mls/hr IV .Q6H40M DANNY Last Admin: 07/30/18 02:58 Dose: 150 mls/hr - Labs Labs: 07/28/18 16:00 07/28/18 16:00 - Constitutional Appears: No Acute Distress - Head Exam Head Exam: ATRAUMATIC - ENT Exam ENT Exam: Mucous Membranes Dry - Neck Exam Neck Exam: Full ROM - Respiratory Exam Respiratory Exam: NORMAL BREATHING PATTERN - GI/Abdominal Exam GI & Abdominal Exam: Normal Bowel Sounds Additional comments: soft ND, NT, FCA above sp at 150 b/m by dopler and witnessed by RN - Exam External exam: NORMAL EXTERNAL EXAM - Extremities Exam Additional comments: no leg edema or calf tenderness - Neurological Exam Neurological Exam: Alert, Awake, Oriented x3 - Skin Skin Exam: Dry Assessment and Plan - Assessment and Plan (Free Text) Assessment: at 14+ wks by dates, hyperemesis gravidarum not responding to present management Plan: Keep NPO Daily wts (not done) switch antiemetic meds from PRN to around the clock and alternate them. Discussed with pt and understands and agreed
[2018-07-31] MEDS: Lactated Ringer's 1,000 ML IV SCH ×3 (08:20→21:12)
--- NOTE | 2018-07-31 12:54 | CP.PCM.PN ---
Subjective - Date & Time of Evaluation Date of Evaluation: 07/31/18 Time of Evaluation: 12:52 - Subjective Subjective: tolerated liquid this am no vomiting last night or this am but refers still nauseous. Denied bleeding or ROM, no pains Objective - Vital Signs/Intake and Output Vital Signs (last 24 hours): Temp Pulse Resp BP Pulse Ox 98.6 F 69 18 108/67 99 07/31/18 09:00 07/31/18 09:00 07/31/18 09:00 07/31/18 09:00 07/30/18 21:00 - Medications Medications: Current Medications Lactated Ringer's (Lactated Ringer's) 1,000 mls @ 150 mls/hr IV .Q6H40M [facility] Last Admin: 07/30/18 23:48 Dose: 150 mls/hr Metoclopramide HCl (Reglan) 10 mg IVP Q8 [facility] Last Admin: 07/31/18 09:47 Dose: Not Given Ondansetron HCl (Zofran Inj) 8 mg IVP Q8H [facility] Last Admin: 07/31/18 05:32 Dose: 8 mg - Labs Labs: 07/28/18 16:00 07/28/18 16:00 - Constitutional Appears: No Acute Distress - Head Exam Head Exam: ATRAUMATIC - Neck Exam Neck Exam: Full ROM - Respiratory Exam Respiratory Exam: NORMAL BREATHING PATTERN - GI/Abdominal Exam Additional comments: soft not distended no rebound Not able to obtain FCA since not able to have doppler available in OB floor and in L/D is lock and problem with combination and not able to get it - Extremities Exam Additional comments: no leg edema or calf tenderness - Neurological Exam Neurological Exam: Alert, Awake, Oriented x3 Assessment and Plan - Assessment and Plan (Free Text) Assessment: improving since yesterday Plan: pt had refused Reglan she feels makes her more nauseous, discussed reason and intent of medications used and goal of treatment Understands.
[2018-08-01 01:11] VITALS: RESP 20
[2018-08-01] MEDS: Lactated Ringer's 1,000 ML IV SCH ×3 (03:55→18:20)
--- NOTE | 2018-08-01 12:34 | CP.PCM.PN ---
Subjective - Date & Time of Evaluation Date of Evaluation: 08/01/18 Time of Evaluation: 12:32 - Subjective Subjective: Denies any vomiting this am or last night feels hungry and wants solid food. Denies bleeding or rom, no pains Objective - Vital Signs/Intake and Output Vital Signs (last 24 hours): Temp Pulse Resp BP Pulse Ox 98.7 F 68 20 113/63 99 08/01/18 05:00 08/01/18 05:00 08/01/18 05:00 08/01/18 05:00 07/30/18 21:00 - Medications Medications: Current Medications Lactated Ringer's (Lactated Ringer's) 1,000 mls @ 150 mls/hr IV .Q6H40M [facility] Last Admin: 08/01/18 11:23 Dose: 150 mls/hr Metoclopramide HCl (Reglan) 10 mg IVP Q8 [facility] Last Admin: 08/01/18 08:33 Dose: Not Given Ondansetron HCl (Zofran Inj) 8 mg IVP Q8H [facility] Last Admin: 08/01/18 05:18 Dose: 8 mg - Labs Labs: 07/28/18 16:00 07/28/18 16:00 - Constitutional Appears: No Acute Distress - Head Exam Head Exam: ATRAUMATIC, NORMAL INSPECTION - Respiratory Exam Respiratory Exam: NORMAL BREATHING PATTERN - GI/Abdominal Exam Additional comments: soft ND no rebound FCA at 150's above sp by doppler - Extremities Exam Additional comments: no edema or calf tenderness. - Neurological Exam Neurological Exam: Alert, Awake, Oriented x3 - Skin Skin Exam: Dry, Warm Assessment and Plan - Assessment and Plan (Free Text) Assessment: improving and tolerated fluids well. Plan: Advance diet as tolerated and continue antiemetic meds and present care
[2018-08-01 15:12] VITALS: O2SAT 100
[2018-08-02] MEDS: Lactated Ringer's 1,000 ML IV SCH ×2 (00:40→06:45)
--- NOTE | 2018-08-02 07:30 | CP.PCM.PN ---
Subjective - Date & Time of Evaluation Date of Evaluation: 08/02/18 Time of Evaluation: 07:28 - Subjective Subjective: feels better today tolerates regular diet Objective - Vital Signs/Intake and Output Vital Signs (last 24 hours): Temp Pulse Resp BP Pulse Ox 98.4 F 72 20 111/64 100 08/02/18 05:00 08/02/18 05:00 08/02/18 05:00 08/02/18 05:00 07/31/18 12:00 - Medications Medications: Current Medications Lactated Ringer's (Lactated Ringer's) 1,000 mls @ 150 mls/hr IV .Q6H40M [facility] Last Admin: 08/02/18 06:45 Dose: 150 mls/hr Metoclopramide HCl (Reglan) 10 mg IVP Q8 [facility] Last Admin: 08/02/18 00:51 Dose: Not Given Ondansetron HCl (Zofran Inj) 8 mg IVP Q8H [facility] Last Admin: 08/02/18 05:14 Dose: 8 mg - Labs Labs: 07/28/18 16:00 07/28/18 16:00 - Eye Exam Additional comments: v.s stable afebrile no nausea or vomiting toerates regular diet Assessment and Plan - Assessment and Plan (Free Text) Assessment: iup at 14 weeks nausea and vomiting feeling better Plan: dc home today rto 1week call office ifany problems
--- NOTE | 2018-08-02 07:40 | CP.PCM.DIS ---
Provider - Provider Date of Admission: 07/30/18 11:17 Attending physician: Hank Barakat MD Time Spent in preparation of Discharge (in minutes): 25 Hospital Course - Lab Results Lab Results: Micro Results 07/28/18 20:27 Urine,Clean Catch Urine Culture - Final No Growth (<1,000 CFU/ML) Most Recent Lab Values WBC 8.3 K/uL (4.8-10.8) 07/28/18 16:00 RBC 3.71 Mil/uL (3.80-5.20) L 07/28/18 16:00 Hgb 11.3 g/dL (12.0-16.0) L 07/28/18 16:00 Hct 33.3 % (34.0-47.0) L 07/28/18 16:00 MCV 89.9 fl (81.0-99.0) 07/28/18 16:00 MCH 30.5 pg (27.0-31.0) 07/28/18 16:00 MCHC 34.0 g/dL (33.0-37.0) 07/28/18 16:00 RDW 17.5 % (11.5-14.5) H 07/28/18 16:00 Plt Count 408 K/uL (130-400) H 07/28/18 16:00 MPV 6.7 fl (7.2-11.7) L 07/28/18 16:00 Neut % (Auto) 90.4 % (50.0-75.0) H 07/28/18 16:00 Lymph % (Auto) 7.4 % (20.0-40.0) L 07/28/18 16:00 [place] % (Auto) 1.6 % (0.0-10.0) 07/28/18 16:00 Eos % (Auto) 0.1 % (0.0-4.0) 07/28/18 16:00 Baso % (Auto) 0.5 % (0.0-2.0) 07/28/18 16:00 Neut # (Auto) 7.5 K/uL (1.8-7.0) H 07/28/18 16:00 Lymph # (Auto) 0.6 K/uL (1.0-4.3) L 07/28/18 16:00 [place] # (Auto) 0.1 K/uL (0.0-0.8) 07/28/18 16:00 Eos # (Auto) 0.0 K/uL (0.0-0.7) 07/28/18 16:00 Baso # (Auto) 0.0 K/uL (0.0-0.2) 07/28/18 16:00 Neutrophils % (Manual) 82 % (42-75) H 07/28/18 16:00 Band Neutrophils % 2 % (0-2) 07/28/18 16:00 Lymphocytes % (Manual) 10 % (20-50) L 07/28/18 16:00 Monocytes % (Manual) 6 % (0-10) 07/28/18 16:00 Platelet Estimate Slightly increased (NORMAL) H 07/28/18 16:00 Hypochromasia (manual) Slight 07/28/18 16:00 Anisocytosis (manual) Slight 07/28/18 16:00 Sodium 140 mmol/l (132-148) 07/28/18 16:00 Potassium 3.8 MMOL/L (3.6-5.0) 07/28/18 16:00 Chloride 107 mmol/L (98-107) 07/28/18 16:00 Carbon Dioxide 20 mmol/L (22-30) L 07/28/18 16:00 Anion Gap 17 (10-20) 07/28/18 16:00 BUN 8 mg/dl (7-17) 07/28/18 16:00 Creatinine 0.5 mg/dl (0.7-1.2) L 07/28/18 16:00 Est GFR ( Amer) > 60 07/28/18 16:00 Est GFR (Non-Af Amer) > 60 07/28/18 16:00 Random Glucose 107 mg/dL (65-105) H 07/28/18 16:00 Calcium 10.1 mg/dL (8.4-10.2) 07/28/18 16:00 Total Bilirubin 0.3 mg/dl (0.2-1.3) 07/29/18 08:42 Direct Bilirubin 0.1 mg/ml (0.0-0.4) 07/29/18 08:42 AST 27 U/L (14-36) 07/29/18 08:42 ALT 20 U/L (9-52) 07/29/18 08:42 Alkaline Phosphatase 32 U/L (38-126) L D 07/29/18 08:42 Total Protein 6.7 G/DL (6.3-8.2) 07/29/18 08:42 Albumin 3.2 g/dL (3.5-5.0) L D 07/29/18 08:42 Globulin 3.5 gm/dL (2.2-3.9) 07/29/18 08:42 Albumin/Globulin Ratio 0.9 (1.0-2.1) L 07/29/18 08:42 Lipase 47 U/L (23-300) 07/28/18 16:00 Beta HCG, Quant 03288.00 mIU/mL 07/28/18 16:00 Urine Color Jalyn (YELLOW) 07/28/18 20:27 Urine Clarity Cloudy (Clear) 07/28/18 20:27 Urine pH 6.0 (5.0-8.0) 07/28/18 20:27 Ur Specific [place] 1.029 (1.003-1.030) 07/28/18 20:27 Urine Protein 100 mg/dL (NEGATIVE) 07/28/18 20:27 Urine Glucose (UA) Neg mg/dL (Normal) 07/28/18 20:27 Urine Ketones 80 mg/dL (NEGATIVE) 07/28/18 20:27 Urine Blood Small (NEGATIVE) 07/28/18 20:27 Urine Nitrate Negative (NEGATIVE) 07/28/18 20:27 Urine Bilirubin Negative (NEGATIVE) 07/28/18 20:27 Urine Urobilinogen 0.2-1.0 mg/dL (0.2-1.0) 07/28/18 20:27 Ur Leukocyte Esterase Mod Yu/uL (Negative) 07/28/18 20:27 Urine RBC (Auto) 16 /hpf (0-3) H 07/28/18 20:27 Urine Microscopic WBC 119 /hpf (0-5) H 07/28/18 20:27 Ur Squamous Epith Cells 21 /hpf (0-5) H 07/28/18 20:27 Urine Bacteria Occ (<OCC) H 07/28/18 20:27 - Hospital Course Hospital Course: uneventful Discharge Exam - Head Exam Head Exam: ATRAUMATIC, NORMAL INSPECTION - Respiratory Exam Additional comments: stable tolerating regular diet Discharge Plan - Follow Up Plan Condition: GOOD Disposition: HOME/ ROUTINE
[2018-08-02 09:41] VITALS: BP 108/63; PULSE 82; TEMP 98.1
== END 2018-08-02 10:40 | disposition home or self-care (01) | DRG 832 ==
LOC: H.ER 14:17 → H.ERHOLD 21:27 → H.OB/GYN 07-29 01:45 → OBSVTOIN 07-30 11:17
PROVIDERS: ADMIT Specialist; ATTEND Specialist
PROC: 4A1HXCZ Monitoring of Products of Conception, Cardiac Rate, External Approach (ICD-10-PCS; principal; 2018-07-30)
DX: O21.1 Hyperemesis gravidarum with metabolic disturbance (principal); O23.41 Unspecified infection of urinary tract in pregnancy, first trimester; E86.0 Dehydration; Z3A.14 14 weeks gestation of pregnancy

== ENCOUNTER 2018-08-18 17:36 | Emergency (ER) | payer BC ==
[2018-08-18 17:55] VITALS: BP 113/67; PULSE 95; RESP 16; TEMP 97.4; O2SAT 100
[2018-08-18 19:19] LABS: BASO # 0.1 K/uL (0.0-0.2); BASO % 1.1 % (0.0-2.0); EOS # 0.3 K/uL (0.0-0.7); EOS % 3.6 % (0.0-4.0); HEMOGLOBIN 11.3 g/dL (12.0-16.0); LYMPH # 2.1 K/uL (1.0-4.3); MEAN CELL VOLUME 92.7 fl (81.0-99.0); MEAN CORPUSCULAR HEMOGLOBIN 31.2 pg (27.0-31.0); MEAN CORPUSCULAR HGB CONC 33.7 g/dL (33.0-37.0); MEAN PLATELET VOLUME 6.9 fl (7.2-11.7); MONO # 0.6 K/uL (0.0-0.8); MONO % 7.6 % (0.0-10.0); NEUT # 4.3 K/uL (1.8-7.0); NEUT % 58.7 % (50.0-75.0); NRBC % 0.1 % (0.0-0.0); RBC 3.63 Mil/uL (3.80-5.20); WHITE BLOOD COUNT 7.4 K/uL (4.8-10.8)
--- NOTE | 2018-08-18 19:50 | ED PDOC ---
HPI: Abdomen Time Seen by Provider: 08/18/18 18:45 Chief Complaint (Nursing): Abdominal Pain Chief Complaint (Provider): abdominal pain History Per: Patient (23 y/o female M1 h/o 17 week gestation here with crampy pain x 2 days. Denies any vaginal bleeding/dysuria/he maturia/fevers/chills. Patient has had ultrasound wnl.) Past Medical History Reviewed: Historical Data, Nursing Documentation, Vital Signs Vital Signs: Last Vital Signs Temp 97.4 F L 08/18/18 17:52 Pulse 95 H 08/18/18 17:52 Resp 16 08/18/18 17:52 BP 113/67 08/18/18 17:52 Pulse Ox 100 08/18/18 17:52 - Medical History PMH: Denies: Alzheimer's Disease, Asthma, Atrial Fibrillation, Bronchitis, CAD, Cardia Arrhythmia, CHF, COPD, Dementia, Emphysema, HIV, HTN, Hypercholesterolemia, Kidney Stones, Migraine, Mitral Valve Prolapse, Multiple Sclerosis, Parkinson's Disease, Peripheral Edema, Pneumonia, Pulmonary Embolism, Chronic Kidney Disease, Seizures, Sleep Apnea, TIA - Surgical History Surgical History: Denies: Pacemaker - Family History Family History: States: Unknown Family Hx - Home Medications Home Medications: Ambulatory Orders Medication Instructions Recorded No Known Home Med 06/30/18 - Allergies Allergies/Adverse Reactions: Allergies Allergy/AdvReac Type Severity Reaction Status Date / Time No Known Allergies Allergy Verified 07/28/18 14:30 Review of Systems ROS Statement: Except As Marked, All Systems Reviewed And Found Negative Gastrointestinal: Positive for: Abdominal Pain Physical Exam - Reviewed Nursing Documentation Reviewed: Yes Vital Signs Reviewed: Yes - Physical Exam Appears: Positive for: Well, Non-toxic, No Acute Distress Head Exam: Positive for: ATRAUMATIC, NORMAL INSPECTION, NORMOCEPHALIC Skin: Positive for: Normal Color, Warm, DRY Eye Exam: Positive for: EOMI, Normal appearance, PERRL ENT: Positive for: Normal ENT Inspection Neck: Positive for: Normal, Painless ROM Cardiovascular/Chest: Positive for: Regular Rate, Rhythm Respiratory: Positive for: CNT, Normal Breath Sounds Gastrointestinal/Abdominal: Positive for: Normal Exam, Soft Back: Positive for: Normal Inspection Extremity: Positive for: Normal ROM Neurologic/Psych: Positive for: Alert, Oriented - Laboratory Results Result Diagrams: 08/18/18 19:15 - ECG O2 Sat by Pulse Oximetry: 100 Disposition - Clinical Impression Clinical Impression: Abdominal pain during - Patient ED Disposition Is Patient to be Admitted: Transfer of Care - Disposition Disposition: Transfer of Care Disposition Time: 20:00 Condition: STABLE Patient Signed Over To: Andrea Dunlap Handoff Comments: pending ultrasound/bloodwork/urinalysis
[2018-08-18 19:57] LABS: ALB/GLOB RATIO 0.9 (1.0-2.1); ALBUMIN 4.1 g/dL (3.5-5.0); ALT/SGPT 27 U/L (9-52); AST/SGOT 39 U/L (14-36); BLOOD UREA NITROGEN 8 mg/dl (7-17); CALCIUM 9.7 mg/dL (8.4-10.2); GFR NON-AFRICAN AMERICAN > 60
[2018-08-18 21:06] LABS: SQUAMOUS EPITHIAL 3 /hpf (0-5); URINE BACTERIA OCC (<OCC); URINE BILIRUBIN NEGATIVE (NEGATIVE); URINE BLOOD NEGATIVE (NEGATIVE); URINE CLARITY SLIGHTY-CLOUDY (Clear); URINE COLOR YELLOW (YELLOW); URINE GLUCOSE (UA) NEG (Normal); URINE LEUKOCYTE ESTERASE SMALL Leu/uL (Negative); URINE PROTEIN NEGATIVE (NEGATIVE); URINE UROBILINOGEN 0.2-1.0 mg/dL (0.2-1.0)
--- NOTE | 2018-08-18 21:42 | ED PDOC ---
- Laboratory Results Result Diagrams: 08/18/18 19:15 08/18/18 19:15 - ECG O2 Sat by Pulse Oximetry: 100 - Progress ED Course And Treament: 1999 Signed out to me pending US report and labs. 2099 On my initial evaluation, pt. in no distress. Reports pain has resolved. Pending US report. 2140 US: SLIUP at 17 weeks gestation Pending [facility] [place]. 2199 Case d/w Dr. Barakat who recommends giving pt. Macrobid and agrees with plan. Pt. can f/u in his office tomorrow. Pt. informed of plan and results. States she gets nauseous from Macrobid but prefers to take the abx that Dr. Barakat recommends. Advised to f/u with OBGYN tomorrow without fail but is to return to ED immediately if symptoms worsen. Disposition - Clinical Impression Clinical Impression: UTI (urinary tract infection) - POA Present On Arrival: None - Disposition Referrals: Hank Barakat MD [Family Provider] - Disposition: Routine/Home Disposition Time: 22:00 Condition: IMPROVED Additional Instructions: FOLLOW UP WITH DR. SCHWARTZ TOMORROW WITHOUT FAIL RETURN TO ED IMMEDIATELY IF SYMPTOMS WORSEN MILO DOLL, thank you for letting us take care of you today. Your provider was Shanel Bravo MD and you were treated for 17 WKS PREGS, ABD PAIN. The emergency medical care you received today was directed at your acute symptoms. If you were prescribed any medication, please fill it and take as directed. It may take several days for your symptoms to resolve. Return to the Emergency Department if your symptoms worsen, do not improve, or if you have any other problems. Please contact your doctor or call one of the physicians/clinics you have been referred to that are listed on the Patient Visit Information form that is inclu ded in your discharge packet. Bring any paperwork you were given at discharge with you along with any medications you are taking to your follow up visit. Our treatment cannot replace ongoing medical care by a primary care provider outside of the emergency department. Thank you for allowing the [facility] to be part of your care today. If you had an X-Ray or CT scan: A Radiologist will review the ED reading if any change in treatment is needed we will contact you. If you had a blood, urine, or wound culture: It will take several days for the results, if any change in treatment is needed we will contact you. If you had an STI test: It will take 48 hours for the results. Please call after 1 week if you have not heard back. Prescriptions: Nitrofurantoin Macrocrystals [Macrobid] 100 mg PO BID #14 cap Instructions: Urinary Tract Infection, Adult (DC) Forms: [employer] (Wallisian) Print Language: SOUTH SUDANESE
--- NOTE | 2018-08-19 11:28 | US ---
Date of service: 08/18/2018 PROCEDURE: Obstetrical ultrasound examination HISTORY: ABD PAIN IN COMPARISON: 06/26/2018 TECHNIQUE: Transabdominal FINDINGS: Limited examination. Single live intrauterine gestation in cephalic presentation. heart rate 147 beats per minute. Normal amniotic fluid volume. Anterior placenta. No previa. Cervix measures 3.4 cm and is closed. biometry yields a gestational age of 17 weeks 0 days. JACQUI by ultrasound is 01/26/2019. There has been appropriate interval growth since the prior examination. anatomy was not assessed at this time. Ovaries not visualized. No adnexal mass identified. Previously identified uterine fibroid on examination of 06/26/2018 is not evident on this examination. IMPRESSION: Masses seen. Single live intrauterine gestation of approximately 17 weeks 0 days. The anatomy not assessed. heart rate 147. JACQUI 01/26/2019. Cervix closed. No previa. The preliminary findings for this examination were reported by [facility] at 9:13 p.m. on 08/18/2018.. There is concurrence of this report with the preliminary findings.
== END 2018-08-18 22:33 | disposition home or self-care (01) ==
LOC: H.ER 17:36
DX: O23.42 Unspecified infection of urinary tract in pregnancy, second trimester (principal); Z3A.17 17 weeks gestation of pregnancy

== ENCOUNTER 2018-11-07 21:15 | Emergency (ER) | payer BC ==
[2018-11-08 02:20] VITALS: BP 79/41; PULSE 84; TEMP 98.1
--- NOTE | 2018-11-08 07:20 | OBHP ---
Datetime: 11/08/2018 07:12 IP Adm Impression: , intrauterine ; No Active Labor IP Admit Plan: Observation/Evaluation; Discharge home Admit Comment, IP Provider: The patient is a 23-year-old 2 para 0 estimated due date January 25, 2019 estimated gestational age 28 weeks patient presents to the hospital complaining of vaginal disch arge and leaking times 48 hours duration. Patient denies any uterine contractions she reports good f etal movement patient states care has been unremarkable Past medical history none Past surgical history none No known drug allergies Social history denies alcohol tobacco use OB history G1 spontaneous miscarriage Review of systems patient denies headache chest pain shortness of breath palpitations nausea vomit ing diarrhea vaginal bleeding heat or cold intolerance easy bruisability musculoskeletal or neurologi ad complaints Vital signs stable afebrile Physical exam see notes Intrauterine at 28 weeks Complaint complaint of discharge leaking Bedside sonogram performed adequate fluid noted Patient advised to follow-up with PMD this week Patient advised to have sonogram repeated as she could have slow leak Patient advised if leaking persists return to the hospital for further evaluation labor precautions provided Impression physiological discharge Pelvic Type - PN: Adequate Extremities - PN: Normal Abdomen - PN: Normal Back - PN: Normal Breast - PN: Not Done Lungs - PN: Normal Heart - PN: Normal Thyroid - PN: Normal Neurologic - PN: Normal HEENT - PN: Normal General - PN: Normal Membranes, Provider: Intact Comments, ACOG Physical Exam: Cervix long closed posterior scant vaginal discharge noted no pulling nitrazine and fern test negative Bedside sonogram MELI adequate Gestation - Est Wks by US: 28.0 Pool Provider: Negative Nitrazine Provider: Negative Ferning Provider: Negative EGA AdmitDate IP: 28.6 IP Chief Complaint: Other NICHD Decel Fetus A IP Provider: None Dilatation, Provider: 0 Effacement, Provider: 0 Station, Provider: -3 Genitourinary Exam: Normal DTRs - PN: Normal
== END 2018-11-07 22:15 | disposition home or self-care (01) ==
LOC: H.EROB2 21:15
DX: O34.62 Maternal care for abnormality of vagina, second trimester (principal); N89.8 Other specified noninflammatory disorders of vagina; Z3A.28 28 weeks gestation of pregnancy

== ENCOUNTER 2018-11-13 15:52 | Observation (INO) | payer BC ==
[2018-11-13 16:34] VITALS: BMI 26.2
[2018-11-13 16:45] LABS: SQUAMOUS EPITHIAL 8 /hpf (0-5); URINE BACTERIA RARE (<OCC); URINE BILIRUBIN NEGATIVE (NEGATIVE); URINE BLOOD NEGATIVE (NEGATIVE); URINE CLARITY SLIGHTY-CLOUDY (Clear); URINE COLOR STRAW (YELLOW); URINE GLUCOSE (UA) NEG (NEGATIVE); URINE LEUKOCYTE ESTERASE MOD Leu/uL (Negative); URINE PROTEIN NEGATIVE (NEGATIVE); URINE UROBILINOGEN 0.2-1.0 mg/dL (0.2-1.0)
[2018-11-13] MEDS ORDERED: Lactated Ringer's 1,000 ML IV SCH ×2 (18:30)
--- NOTE | 2018-11-13 18:32 | US ---
Date of service: 11/13/2018 PROCEDURE: Limited obstetrical ultrasound HISTORY: ctxns at 29+4 wks COMPARISON: None TECHNIQUE: Standard protocol for this study/examination. FINDINGS: Closed cervix 3.44 cm. IMPRESSION: Closed cervix. 3.44 cm in length.
--- NOTE | 2018-11-13 20:29 | OBHP ---
Datetime: 11/13/2018 16:36 IP Adm Impression: , intrauterine IP Admit Plan: Observation/Evaluation Admit Comment, IP Provider: 23 yo at 29+4 wks w/ EDC 01/25/2019 c/o cramping since yesterday , light pink d/c yesterday, reports that her abdomen feels tight since this am, denies LOf, reports F M. Pt denies dusuria. All other systems reviewe and negative. Pt was here in [place] on Thursday for c/ o LOF. Pt receives her PN care w/ Dr. Barakat. 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 Cerv ix measured by u/s: closed and 3.44 cm. Ua sl cldy, LE mod, ur sq epi 8, bact rare; urine cx pending. VE unchanged at 1954. Pt feeling better after receiving IV fluid. Recurrent variable deceleration s noted on the strip. Overall heart tracing is reassuring. Pt admitted for observation over night. Plan discussed w/ Dr. Pérez. Abdomen - PN: Normal Back - PN: Normal Lungs - PN: Normal Heart - PN: Normal Neurologic - PN: Normal General - PN: Normal FHR - Baseline A Provider: 140's Membranes, Provider: Intact EGA AdmitDate IP: 29.4 Vital Signs Provider: Reviewed IP Chief Complaint: Uterine contractions NICHD Variability Prov Fetus A: Moderate 6-25bpm FHR Category Provider Fetus A: Category II NICHD Decel Fetus A IP Provider: Variable Dilatation, Provider: 0 Effacement, Provider: 0 Station, Provider: -3 Genitourinary Exam: Normal
[2018-11-13] MEDS: Lactated Ringer's 1,000 ML IV SCH (20:30)
--- NOTE | 2018-11-13 20:34 | OBADHP ---
Datetime: 11/13/2018 20:29 Extremities - PN: Normal Abdomen - PN: Normal Back - PN: Normal Lungs - PN: Normal Heart - PN: Normal Thyroid - PN: Not Done General - PN: Normal FHR - Baseline A Provider: 140's Membranes, Provider: Intact Vital Signs Provider: Reviewed IP Chief Complaint: Uterine contractions NICHD Variability Prov Fetus A: Moderate 6-25bpm FHR Category Provider Fetus A: Category II NICHD Decel Fetus A IP Provider: Variable Dilatation, Provider: 0 Effacement, Provider: 0 Station, Provider: -3 Genitourinary Exam: Normal EGA AdmitDate IP: 29.4 IP Adm Impression: , intrauterine IP Admit Plan: Observation/Evaluation Datetime: 11/13/2018 16:36 Admit Comment, IP Provider: 23 yo at 29+4 wks w/ EDC 01/25/2019 c/o cramping since yesterday , light pink d/c yesterday, reports that her abdomen feels tight since this am, denies LOF, reports F M. Pt denies dusuria. All other systems reviewe and negative. Pt was here in [place] on Thursday for c/ o LOF. Pt receives her PN care w/ Dr. Barakat. 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 Cerv ix measured by u/s: closed and 3.44 cm. Ua sl cldy, LE mod, ur sq epi 8, bact rare; urine cx pending. VE unchanged at 1954. Pt feeling better after receiving IV fluid. Recurrent variable deceleration s noted on the strip. Overall heart tracing is reassuring. Pt admitted for observation over night. Plan discussed w/ Dr. Barakat. Neurologic - PN: Normal Contraction Comments Provider: irreg Datetime: 11/08/2018 07:12 Pelvic Type - PN: Adequate Breast - PN: Not Done HEENT - PN: Normal Comments, ACOG Physical Exam: Cervix long closed posterior scant vaginal discharge noted no pulling nitrazine and fern test negative Bedside sonogram MELI adequate Gestation - Est Wks by US: 28.0 Pool Provider: Negative Nitrazine Provider: Negative Ferning Provider: Negative DTRs - PN: Normal
[2018-11-14] MEDS: Lactated Ringer's 1,000 ML IV SCH (04:30)
--- NOTE | 2018-11-14 09:49 | OBPN ---
Datetime: 11/14/2018 09:46 IP Progress Note Comment: Patient evalauted this AM. Denies any signs of labor - no vaginal bleeding , no leaking, +FM, no ctxns. FHR = 150 mod placido, no accels, occasional variables throughout the evenin g. TOCO = no ctxns. BPP this AM was 8, MELI = 13. Discussed plan of care with Dr. Yuval barba d ischarge patient this AM. Labor precautions given, pt to follow up in office 11/15. Datetime: 11/13/2018 20:29 Membranes, Provider: Intact FHR - Baseline A Provider: 140's Vital Signs Provider: Reviewed FHR Category Provider Fetus A: Category II NICHD Variability Prov Fetus A: Moderate 6-25bpm Dilatation, Provider: 0 Effacement, Provider: 0 Station, Provider: -3 NICHD Decel Fetus A IP Provider: Variable Datetime: 11/13/2018 16:36 Contraction Comments Provider: irreg Datetime: 11/08/2018 07:12 Pool Provider: Negative Nitrazine Provider: Negative Ferning Provider: Negative Gestation - Est Wks by US: 28.0
--- NOTE | 2018-11-14 09:52 | OBDCSUM ---
Datetime: 11/14/2018 09:45 Discharged to, Provider: Home Follow up at, Provider: dr mueller Disch Instr Activity: Normal activity Disch Instr Diet: Regular Discharge Instructions, Provider: Routine instructions given Discharge Time: 11/14/2018 09:45 Follow up in weeks, Provider: dr ervin Tipton Referrals: None Contraception discussed, Prov: No Disch Activity Restrictions: No lifting Discharge Diagnosis Prov Other: ICD: O36.8390 maternal care for abnormalities of the heart rate rhythm
--- NOTE | 2018-11-14 10:38 | US ---
Date of service: 11/14/2018 PROCEDURE: Biophysical profile. HISTORY: variable decelerations COMPARISON: 06/26/2018, 08/18/2018 and 11/13/2018. TECHNIQUE: Standard protocol for this study/examination. FINDINGS: FINDINGS: Biophysical profile score 8/8 Based on the followin. breathing movements: 2/2 2. Gross body movement: 2/2 3. tone: 2/2 4. Qualitative amniotic fluid index: 2/2 Amniotic fluid index 13.42 cm. Cardiac rate 137 beats per minute. Gestational age based on LMP 29 weeks 5 days. JACQUI 01/25/2019. IMPRESSION: Biophysical profile score 8/8. Amniotic fluid index 13.42 cm.
[2018-11-14 14:38] VITALS: BP 112/69; PULSE 96; RESP 18; TEMP 98.1; O2SAT 98
== END 2018-11-14 10:30 | disposition home or self-care (01) ==
LOC: H.EROB2 15:52 → H.L&D 20:16
PROVIDERS: ADMIT Specialist; ATTEND Specialist
DX: O36.8330 Maternal care for abnormalities of the fetal heart rate or rhythm, third trimester, not applicable or unspecified (principal); Z3A.29 29 weeks gestation of pregnancy
CPT/HCPCS: 76817; 76818; 81003; 87086; 96360; 96361; 99285; G0378; J7120

== ENCOUNTER 2018-11-19 13:36 | Emergency (ER) | payer BC ==
[2018-11-19 14:01] VITALS: BMI 26.7
[2018-11-19 14:44] LABS: SQUAMOUS EPITHIAL 5 /hpf (0-5); URINE BACTERIA RARE (<OCC); URINE BILIRUBIN NEGATIVE (NEGATIVE); URINE BLOOD NEGATIVE (NEGATIVE); URINE CLARITY CLOUDY (Clear); URINE COLOR YELLOW (YELLOW); URINE GLUCOSE (UA) NEG (NEGATIVE); URINE LEUKOCYTE ESTERASE MOD Leu/uL (Negative); URINE PROTEIN NEGATIVE (NEGATIVE); URINE UROBILINOGEN 0.2-1.0 mg/dL (0.2-1.0)
--- NOTE | 2018-11-19 15:48 | OBDCSUM ---
Datetime: 11/19/2018 15:46 Follow up at, Provider: Dr Barakat Disch Instr Activity: Normal activity Disch Instr Diet: Regular Discharge Time: 11/19/2018 15:55 Disch Activity Restrictions: No exercising; No lifting; No driving; Minimize walking; Minimize stair -climbing; No sexual activity; Nothing in vagina - [place], tampons, douche Datetime: 11/19/2018 15:45 Discharge Diagnosis, Provider: False Labor - Undelivered Disch Activity Restrictions: No sexual activity; Nothing in vagina - [place], tampons, douche Discharge Comment, Provider: Nov 09 - Jeanette - Terazol 7 Trich - Flagyl 50mg BID x 7d - partner to be treated/condition expained to pt. She understood. Elizabeth farnsworth with Dr Mosqueda next thursday as scheduled,,,spoke to Dr Barakat
--- NOTE | 2018-11-19 16:35 | US ---
Date of service: 11/19/2018 PROCEDURE: Biophysical profile HISTORY: ?RUPTUREOF MEMBRANES Transvaginal obstetric ultrasound 11/13/2018. COMPARISON: None available. FINDINGS: UTERUS: Gestational sac: Single intrauterine gestation. Heart rate: 142 bpm. age (Ultrasound estimated): biometry not obtained Mary-gestational hemorrhage: None. MELI measures 11.7 compared to 13.4 11/14/2018. FREE FLUID: None. OTHER FINDINGS: None. IMPRESSION: Limited obstetric ultrasound for amniotic fluid index measures 11.72 cm compared to 13.4 cm on 11/14/2018. No biometry or anatomic survey obtained in this examination.
[2018-11-19 21:23] VITALS: BP 97/59; PULSE 104; RESP 18; TEMP 98.3
== END 2018-11-19 16:05 | disposition home or self-care (01) ==
LOC: H.EROB2 13:36
DX: O34.63 Maternal care for abnormality of vagina, third trimester (principal); N89.8 Other specified noninflammatory disorders of vagina; O47.03 False labor before 37 completed weeks of gestation, third trimester; Z3A.30 30 weeks gestation of pregnancy

== ENCOUNTER 2018-12-09 16:30 | Emergency (ER) | payer BC ==
[2018-12-09 17:22] VITALS: BMI 27.4
--- NOTE | 2018-12-09 18:49 | US ---
Date of service: 12/09/2018 PROCEDURE: Biophysical profile HISTORY: fluid assessment COMPARISON: 11/14/2018 biophysical profile TECHNIQUE: Standard protocol for this study/examination. FINDINGS: FINDINGS: Biophysical profile score 8/8 Based on the followin. breathing movements: 2/2 2. Gross body movement: 2/2 3. tone: 2/2 4. Qualitative amniotic fluid index: 2/2 Amniotic fluid index 15.26 cm. Closed cervix 4.5 cm. Calculated cardiac rate 139 beats per minute IMPRESSION: Biophysical profile score 8/8. Amniotic fluid index 15.26 cm.
[2018-12-09 22:38] LABS: SPECIMEN COMMENT CLOUDY
[2018-12-10 05:07] VITALS: BP 105/70; PULSE 79; RESP 20; TEMP 98.5
== END 2018-12-09 22:45 | disposition home or self-care (01) ==
LOC: H.EROB2 16:30
DX: O34.63 Maternal care for abnormality of vagina, third trimester (principal); N89.8 Other specified noninflammatory disorders of vagina; Z3A.33 33 weeks gestation of pregnancy; O26.93 Pregnancy related conditions, unspecified, third trimester; R10.2 Pelvic and perineal pain

== ENCOUNTER 2019-01-03 11:26 | Emergency (ER) | payer BC ==
--- NOTE | 2019-01-03 18:48 | OBDCSUM ---
Datetime: 01/03/2019 13:27 Discharged to, Provider: Home Follow up at, Provider: Dr Barakat Disch Instr Activity: Normal activity Disch Instr Diet: Regular Discharge Time: 01/03/2019 13:27 Follow up in weeks, Provider: Next Scheduled appointment Disch Referrals: None Discharge Diagnosis Prov Other: False labor
--- NOTE | 2019-01-03 18:48 | OBHP ---
Datetime: 01/03/2019 11:48 IP Adm Impression: , intrauterine IP Admit Plan: Observation/Evaluation Admit Comment, IP Provider: 23 YO with IUP at EGA 36.6 weeks as per LMP 04/19/18, ED[facility] 01/25/19, who presents to [facility] with c/o CONTX with pain that started at 5 AM and where Q 2minutes apart until 8 AM, then spread apart after that and now are irregular. Patient denies VB, LOF, BROTHERS, N/V, dizziness, dysuria, abdominal pain or other acute medical complaint at present. Patient endorses +FM. ROS: all other systems reviewed and negative unless noted in HPI OBGYN: Patient denies any problems with current . First SAB at 8 weeks. provider: Dr Delgado PMH: Denies FMH: denies Meds: PNV Surgical Hx: Denies SOCHx: denies ETOH, smoking, drug use ALLERG: NKA Labs: ABO O+. GBS positive on 12/28/18 PE: GEN: no acute distress, appears comfortable. VS: WNL, afebrile Abd: Gravid, BS present, soft, no tenderness. Ext: No pedal edema Pelvic exam performed by attending: Cervix posterior and closed A/P 23 YO with IUP at EGA 36.6 weeks as per LMP 04/19/18, EDC 01/25/19, who presents to [facility] with c/o CONTX, that are irregular at present. Patient appears comfortable. Cervix closed. Impression: R/o latent labor -Observation and evaluation in L_D -Maternal VS monitoring -FHR monitorins -Planning: DC home Case reviewed, seen and discussed with attending Dr Mingo Foster MD PGY1 Addendum by Dr. Aguila: I have evaluated the patient independently and I agree with the above Extremities - PN: Normal Abdomen - PN: Normal Lungs - PN: Normal Heart - PN: Normal General - PN: Normal FHR - Baseline A Provider: 136 Comments, ACOG Physical Exam: see triage comments IP Hx Assessment: The History has been Reviewed and is Current EGA AdmitDate IP: 36.6 Vital Signs Provider: Reviewed; Within Normal Limits IP Chief Complaint: Uterine contractions NICHD Variability Prov Fetus A: Moderate 6-25bpm NICHD Decel Fetus A IP Provider: None Datetime: 12/09/2018 16:59 Gestation - Est Wks by US: 33.2 NICHD Accel Fetus A IP Provider: 15X15 FHR Category Provider Fetus A: Category I Datetime: 11/19/2018 14:20 Back - PN: Normal Breast - PN: Not Done HEENT - PN: Normal Membranes, Provider: Intact Contraction Comments Provider: none Pool Provider: Negative Nitrazine Provider: Negative Ferning Provider: Negative Dilatation, Provider: 0 Effacement, Provider: 0 Datetime: 11/13/2018 20:29 Thyroid - PN: Not Done IP Indication for Induction: Not Applicable Station, Provider: -3 Genitourinary Exam: Normal
[2019-01-03 22:49] VITALS: BP 108/72; PULSE 86
== END 2019-01-03 13:27 | disposition home or self-care (01) ==
LOC: H.EROB2 11:26 → H.L&D 12:16 → H.EROB2 13:27
DX: O26.93 Pregnancy related conditions, unspecified, third trimester (principal); R10.2 Pelvic and perineal pain; Z3A.36 36 weeks gestation of pregnancy

== ENCOUNTER 2019-01-17 22:00 | Inpatient (IN) | payer BC ==
[2019-01-17 23:31] VITALS: BMI 28.8
[2019-01-17] MEDS ORDERED: Lactated Ringer's 1,000 ML IV SCH (23:45)
[2019-01-18] MEDS ORDERED: Nalbuphine HCL 10 mg/ml Ampule IVP PRN (00:48)
[2019-01-18] MEDS ORDERED: OXYTOCIN/0.9 % NS 20 UNIT/1,000 ML BAG IV ONE ×2 (00:49→23:24)
[2019-01-18] MEDS ORDERED: Oxytocin 30 UNIT in NS 500 ml 30 UNITS/500 ML BAG IV ONE ×4 (00:49→16:16)
[2019-01-18] MEDS ORDERED: Lactated Ringer's 1,000 ML IV ONE (00:55)
--- NOTE | 2019-01-18 01:16 | OBHP ---
Datetime: 01/18/2019 00:51 IP Adm Impression: Term, intrauterine Pelvic Type - PN: Adequate Extremities - PN: Normal Abdomen - PN: Normal Back - PN: Normal Breast - PN: Not Done Lungs - PN: Normal Heart - PN: Normal Thyroid - PN: Normal Neurologic - PN: Normal HEENT - PN: Normal General - PN: Normal FHR - Baseline A Provider: 135 Comments, ACOG Physical Exam: HEart no extra heart sound lung clear Abd BS+ nontender to palpate Cervix 3, 70,-3 Gestation - Est Wks by US: 39.0 EGA AdmitDate IP: 39.0 IP Chief Complaint: Uterine contractions NICHD Variability Prov Fetus A: Moderate 6-25bpm NICHD Accel Fetus A IP Provider: 15X15 FHR Category Provider Fetus A: Category I NICHD Decel Fetus A IP Provider: None Dilatation, Provider: 3 Effacement, Provider: 70 Station, Provider: -3 Genitourinary Exam: Normal DTRs - PN: Normal Datetime: 01/17/2019 22:22 IP Admit Plan: Admit to unit; Initiate labor protocol Admit Comment, IP Provider: 23 yo f 38.6wk present to [facility] due to contraction since 18:. Otherwise patient have no other complains. Patient denies vaginal bleeding or watergush, exce pt while in the L_D she have passed some fluid on floor unaware if its a watergush. PCP: [facility] Allergy none Med: PNV PMH None PSH: D_C OBGYN: Hx of trichomonas, GBS+, 1 miscarriage PFH: None Social Denies smoke drink or drug use 22:00 Assessment and plan 23 yo f 38.6wk present to [facility] due to contraction since 18:01/17/19. Vitals WNL strip Reactive Cervix 1, high Will Start LR 1 Lit 999 Ysabri PGY1 Case discussed with Dr Lyle OB Hospitalist Addendum: Pt seen and examined by me. Agree w/ above. 23 yo at 38+6 wks a dmitted to L_D in labor. VE 3-4/ 70/-2 at 0045. FHT reactive. GBS positive. Penicillin ordered fo r GBS prophylaxis. Pt ordered for IV nubaine. Plan discussed w/ Dr. Barakat. (ES) Vital Signs Provider: Reviewed; Within Normal Limits
--- NOTE | 2019-01-18 01:18 | OBADHP ---
Datetime: 01/18/2019 00:51 Admit Comment, IP Provider: 23 yo f 39wk present to [facility] due to contraction since 18:26 0406/09. Otherwise patient have no other complains. Patient denies vaginal bleeding or watergush, except while in the L_D she have passed some fluid on floor unaware if its a watergush. PCP: Kristal Allergy none Med: PNV PMH None PSH: D_C OBGYN: Hx of trichomonas, GBS+, 1 miscarriage PFH: None Social Denies smoke drink or drug use Assessment and plan 23 yo f 39wk present to [facility] due to contraction since 18:26 01/17/19. Admitted to UNIT Fo r L_D Vitals WNL strip Reactive Cervix 3,70, -3 Will Start LR 1 Lit 999 Start on LR 1 Lit at 125 Nubain for pain Initiate Labor protocol Pit after Placenta delivery Ysabri PGY1 Case discussed with Dr Lyle OB Hospitalist Addendum: Pt seen and examined by me. Agree w/ above. 23 yo at 38+6 wks a dmitted to L_D in labor. VE 3-4/ 70/-2 at 0045. FHT reactive. GBS positive. Penicillin ordered fo r GBS prophylaxis. Pt ordered for IV nubaine. Plan discussed w/ Dr. Barakat. (ES) Pelvic Type - PN: Adequate Extremities - PN: Normal Abdomen - PN: Normal Back - PN: Normal Breast - PN: Not Done Lungs - PN: Normal Heart - PN: Normal Thyroid - PN: Normal Neurologic - PN: Normal HEENT - PN: Normal General - PN: Normal FHR - Baseline A Provider: 135 Membranes, Provider: Intact Comments, ACOG Physical Exam: HEart no extra heart sound lung clear Abd BS+ nontender to palpate Cervix 3, 70,-3 Gestation - Est Wks by US: 39.0 Pool Provider: Negative Nitrazine Provider: Negative Vital Signs Provider: Reviewed IP Chief Complaint: Uterine contractions NICHD Decel Fetus A IP Provider: None Dilatation, Provider: 3 Genitourinary Exam: Normal DTRs - PN: Normal EGA AdmitDate IP: 39.0 IP Adm Impression: Term, intrauterine Datetime: 01/17/2019 22:22 NICHD Variability Prov Fetus A: Moderate 6-25bpm NICHD Accel Fetus A IP Provider: 15X15 FHR Category Provider Fetus A: Category I Effacement, Provider: 50 Station, Provider: -3 IP Admit Plan: Admit to unit; Initiate labor protocol Datetime: 01/03/2019 11:48 IP Hx Assessment: The History has been Reviewed and is Current Datetime: 11/19/2018 14:20 Contraction Comments Provider: none Ferning Provider: Negative
[2019-01-18 02:14] LABS: BASO # 0.1 K/uL (0.0-0.2); BASO % 0.6 % (0.0-2.0); EOS # 0.1 K/uL (0.0-0.7); HEMOGLOBIN 12.3 g/dL (12.0-16.0); LYMPH # 2.3 K/uL (1.0-4.3); LYMPH % 21.3 % (20.0-40.0); MEAN CELL VOLUME 99.4 fl (81.0-99.0); MEAN CORPUSCULAR HEMOGLOBIN 33.4 pg (27.0-31.0); MEAN CORPUSCULAR HGB CONC 33.6 g/dL (33.0-37.0); MEAN PLATELET VOLUME 7.7 fl (7.2-11.7); MONO # 0.8 K/uL (0.0-0.8); MONO % 7.5 % (0.0-10.0); NEUT # 7.7 K/uL (1.8-7.0); NEUT % 69.6 % (50.0-75.0); NRBC % 0.1 % (0.0-0.0); RBC 3.7 Mil/uL (3.80-5.20); RED CELL DISTRIBUTION WIDTH 14.3 % (11.5-14.5)
[2019-01-18] MEDS ORDERED: Penicillin G 5 Million Unit Vial IVPB ONE (02:46)
[2019-01-18] MEDS: Lactated Ringer's 1,000 ML IV SCH ×2 (07:00→15:58)
[2019-01-18] MEDS: Lactated Ringer's 1,000 ML IV ONE ×2 (08:00→09:00)
[2019-01-18] MEDS ORDERED: Bupivacaine HCl 0.5% PF (30 ml) Inj ONE (09:28)
[2019-01-18] MEDS ORDERED: Fentanyl/Bupivacaine HCl 250 ML EPI ONE (09:30)
[2019-01-18] MEDS ORDERED: Lidocaine 1% Inj (20ml) ONE (17:43)
[2019-01-18] MEDS ORDERED: Benzocaine/Menthol SPRAY TOP PRN (23:24)
[2019-01-18] MEDS ORDERED: Oxycodone/Acetaminophen 5/325 mg Tab PO PRN ×2 (23:24)
[2019-01-19] MEDS ORDERED: Oxycodone/Acetaminophen 5/325 mg Tab PO PRN ×2 (03:26)
[2019-01-19] MEDS ORDERED: Benzocaine/Menthol SPRAY TOP PRN (03:26)
[2019-01-19 04:56] LABS: BASO # 0.1 K/uL (0.0-0.2); BASO % 0.7 % (0.0-2.0); EOS % 0.1 % (0.0-4.0); HEMOGLOBIN 11.6 g/dL (12.0-16.0); LYMPH # 1.1 K/uL (1.0-4.3); LYMPH % 8.4 % (20.0-40.0); MEAN CELL VOLUME 98.7 fl (81.0-99.0); MEAN CORPUSCULAR HEMOGLOBIN 33.5 pg (27.0-31.0); MEAN CORPUSCULAR HGB CONC 33.9 g/dL (33.0-37.0); MEAN PLATELET VOLUME 7.2 fl (7.2-11.7); MONO % 7.8 % (0.0-10.0); NEUT # 11.1 K/uL (1.8-7.0); NRBC % 0.1 % (0.0-0.0); PLATELET COUNT 277 K/uL (130-400); RBC 3.47 Mil/uL (3.80-5.20); RED CELL DISTRIBUTION WIDTH 13.9 % (11.5-14.5); WHITE BLOOD COUNT 13.4 K/uL (4.8-10.8)
[2019-01-19 06:08] LABS: PLATELET ESTIMATE NORMAL (NORMAL)
[2019-01-19 06:09] LABS: BANDS 4 % (0-2); HYPOCHROMIC SLIGHT; LYMPHOCYTE 9 % (20-50); MONOCYTE 9 % (0-10); NEUTROPHIL 78 % (42-75); TOTAL CELLS COUNTED 100
[2019-01-19] MEDS ORDERED: Multivitamin With Minerals Tab PO SCH (09:00)
[2019-01-19] MEDS: Multivitamin With Minerals Tab PO SCH (09:41)
--- NOTE | 2019-01-19 17:19 | OBPPN ---
Datetime: 01/19/2019 17:15 PP Pain Prov: Within normal limits PP Nausea Prov: Denies PP Flatus Prov: Yes PP Breasts Prov: Normal PP Heart Prov: Normal PP Lungs Prov: Normal PP Abdomen/Uterus Prov: Normal PP Lochia Prov: Normal PP Vulva/Perineum Prov: Normal PP CVA Tenderness Prov: Normal PP Extremities Prov: Normal PP Progress Prov: Normal PP Impression Prov: Normal progression PP Plan Prov: Continue present management PP Progress Note Prov: stable ppd1 no complaints continue present care IP PP Procedures: None
--- NOTE | 2019-01-20 07:57 | OBDCSUM ---
Datetime: 01/20/2019 07:54 Discharged to, Provider: Home Follow up at, Provider: Disch Instr Activity: Normal activity; Bedrest; May be up to bathroom; May be up for meals; May Show er Disch Instr Diet: Regular Discharge Instructions, Provider: Routine instructions given Discharge Diagnosis, Provider: Term Delivered Discharge Time: 01/20/2019 07:54 Follow up in weeks, Provider: 5-6 weeks in [place] Disch Referrals: None Disch Activity Restrictions: No exercising; No lifting; No driving; Minimize walking; Minimize stair -climbing; No sexual activity; Nothing in vagina - [place], tampons, douche Contraception after Delivery: Undecided
[2019-01-20] MEDS ORDERED: Measles, Mumps, and Rubella 0.5 ML VIAL SC ONE (08:02)
[2019-01-20] MEDS: Multivitamin With Minerals Tab PO SCH (09:03)
[2019-01-20 19:09] VITALS: BP 116/80; PULSE 73; RESP 20; TEMP 98.1; O2SAT 99
== END 2019-01-20 12:25 | disposition home or self-care (01) | DRG 807 ==
LOC: H.EROB2 22:00 → H.L&D 01-18 00:47 → H.OB/GYN 01-19 03:00
PROVIDERS: ADMIT Specialist; ATTEND Specialist
PROC: 10E0XZZ Delivery of Products of Conception, External Approach (ICD-10-PCS; principal; 2019-01-18)
PROC: 0HQ9XZZ Repair Perineum Skin, External Approach (ICD-10-PCS; 2019-01-18)
PROC: 4A1HXCZ Monitoring of Products of Conception, Cardiac Rate, External Approach (ICD-10-PCS; 2019-01-18)
DX: O70.0 First degree perineal laceration during delivery (principal); Z37.0 Single live birth; O99.824 Streptococcus B carrier state complicating childbirth; O69.81X0 Labor and delivery complicated by cord around neck, without compression, not applicable or unspecified; Z3A.39 39 weeks gestation of pregnancy

== ENCOUNTER 2019-02-15 15:49 | Emergency (ER) | payer BC ==
[2019-02-15 15:49] VITALS: BMI 28.8
[2019-02-15 17:05] VITALS: O2SAT 98
--- NOTE | 2019-02-15 18:28 | ED PDOC ---
HPI: Psych/Substance Abuse Time Seen by Provider: 02/15/19 18:01 Chief Complaint (Nursing): Psychiatric Evaluation Chief Complaint (Provider): depressed History Per: Patient History/Exam Limitations: no limitations Onset/Duration Of Symptoms: Days Current Symptoms Are (Timing): Still Present Suicide/Self Injury Attempted (Context): None Modifying Factor(s): None Additional Complaint(s): 24 yo F who is a A1, had a normal vaginal delivery on 01/18 presents for depression since. Pt saw her OBGYN today, Dr. Barakat who sent pt here for evaluation. Pt notes she has felt sad and depressed. SHe admits to suicidal ideations. States she has had thoughts that she wishes she could go to sleep and not wake up, but she notes she wouldn't do anything because she knows she can't because of her . She denies any plan or attempt. Pt is breast feeding and giving formula. Pt denies every feeling like this before. Pt otherwise denies any other complaints. Denies homicidal ideations, visual or auditory hallucinations. PMD: none OBGYN: Dr. Barakat LMP: 9 months ago Past Medical History Reviewed: Historical Data, Nursing Documentation, Vital Signs Vital Signs: Last Vital Signs Temp 98.7 F 02/15/19 17:04 Pulse 75 02/15/19 17:04 Resp 16 02/15/19 17:04 BP 135/87 02/15/19 17:04 Pulse Ox 98 02/15/19 17:04 Primary Care Provider: Doctor,Yonatan - Medical History PMH: Denies: Alzheimer's Disease, Asthma, Atrial Fibrillation, Bronchitis, CAD, Cardia Arrhythmia, CHF, COPD, Dementia, Depression, Diabetes, Emphysema, HIV, HTN, Hypercholesterolemia, Kidney Stones, Migraine, Mitral Valve Prolapse, Multiple Sclerosis, Parkinson's Disease, Peripheral Edema, Pneumonia, Pulmonary Embolism, Chronic Kidney Disease, Seizures, Sleep Apnea, TIA - Surgical History Surgical History: Denies: Pacemaker - Family History Family History: States: Unknown Family Hx - Social History Current smoker - smoking cessation education provided: No Alcohol: None Drugs: Denies - Home Medications Home Medications: Ambulatory Orders Medication Instructions Recorded Vit No.126/Iron/Folic 1 tab PO DAILY 01/17/19 [Classic Tablet] - Allergies Allergies/Adverse Reactions: Allergies Allergy/AdvReac Type Severity Reaction Status Date / Time No Known Allergies Allergy Verified 02/15/19 17:02 Review of Systems Constitutional: Negative for: Fever, Chills Gastrointestinal: Negative for: Abdominal Pain Psych: Positive for: Depression, Suicidal ideation Physical Exam - Reviewed Nursing Documentation Reviewed: Yes Vital Signs Reviewed: Yes - Physical Exam Comments: GENERAL APPEARANCE: Patient is awake, alert, oriented x 3, in no acute distress. SKIN: Warm, dry; (-) cyanosis HEAD: (-) scalp swelling, (-) scalp tenderness. EYES: (-) conjunctival pallor, (-) scleral icterus, (-) nystagmus. ENMT: Mucous membranes moist. Airway patent: (-) stridor. NECK: (-) tenderness, (-) stiffness, (-) lymphadenopathy. HEART AND CARDIOVASCULAR: (-) irregularity; (-) murmur, (-) gallop. CHEST AND RESPIRATORY: (-) rales, (-) rhonchi, (-) wheezes; breath sounds equal. ABDOMEN: Soft, (-) distention, (-) tenderness, (-) guarding. NEURO AND PSYCH: Mental status as above. 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 Pupils equal and reactive; EOMI; (-) facial asymmetry; tongue and uvula midline. Strength and DTRs symmetric. - Laboratory Results Result Diagrams: 02/15/19 18:55 02/15/19 18:51 - ECG O2 Sat by Pulse Oximetry: 98 Medical Decision Making Medical Decision Makin:01 initial eval - depression -- crisis eval -- 1:1 -- crisis labs 19:20 pt seen by crisis and cleared for dc, Dr. Gonzales, diagnosis post depression, pt to contact her insurance for therapist/support groups for follow up Discussed results, diagnosis, treatment, return precautions and f/u with pt who is understanding, in agreement and stable for dc Disposition - Clinical Impression Clinical Impression: Post depression - Patient ED Disposition Is Patient to be Admitted: No Counseled Patient/Family Regarding: Studies Performed, Diagnosis, Need For Followup - Disposition Referrals: a, therapist [Other] (contact your insurance ) Disposition: Routine/Home Disposition Time: 19:21 Condition: STABLE Additional Instructions: The emergency medical care you received today was directed at your acute symptoms. If you were prescribed any medication, please fill it and take as directed. It may take several days for your symptoms to resolve. Return to the Emergency Department if your symptoms worsen, do not improve, or if you have any other problems. Please contact your doctor in 2 days for re-evaluation and follow up / or call one of the physicians/clinics you have been referred to that are listed on the Patient Visit Information form that is included in your discharge packet. Bring any paperwork you were given at discharge with you along with any medications you are taking to your follow up visit. Our treatment cannot replace ongoing medical care by a primary care provider (PCP) outside of the emergency department. Instructions: Depression, What to Watch for After You Have a Baby Forms: [employer] ([place]ian) Print Language: BENGAL[place] - POA Present On Arrival: None
[2019-02-15 19:02] LABS: SQUAMOUS EPITHIAL 4 /hpf (0-5); URINE BILIRUBIN NEGATIVE (NEGATIVE); URINE BLOOD NEGATIVE (NEGATIVE); URINE CLARITY SLIGHTY-CLOUDY (Clear); URINE COLOR YELLOW (YELLOW); URINE GLUCOSE (UA) NEG (NEGATIVE); URINE LEUKOCYTE ESTERASE NEG Leu/uL (Negative); URINE PROTEIN NEGATIVE (NEGATIVE); URINE UROBILINOGEN 0.2-1.0 mg/dL (0.2-1.0)
[2019-02-15 19:06] LABS: BASO % 0.9 % (0.0-2.0); EOS # 0.3 K/uL (0.0-0.7); EOS % 5.3 % (0.0-4.0); HEMOGLOBIN 14.5 g/dL (12.0-16.0); LYMPH # 2.6 K/uL (1.0-4.3); LYMPH % 51.6 % (20.0-40.0); MEAN CELL VOLUME 99.3 fl (81.0-99.0); MEAN CORPUSCULAR HGB CONC 33.2 g/dL (33.0-37.0); MEAN PLATELET VOLUME 7.7 fl (7.2-11.7); MONO # 0.3 K/uL (0.0-0.8); MONO % 5.6 % (0.0-10.0); NEUT # 1.9 K/uL (1.8-7.0); NEUT % 36.6 % (50.0-75.0); NRBC % 0.2 % (0.0-0.0); RBC 4.39 Mil/uL (3.80-5.20); RED CELL DISTRIBUTION WIDTH 12.9 % (11.5-14.5); WHITE BLOOD COUNT 5.1 K/uL (4.8-10.8)
[2019-02-15 19:07] LABS: ALB/GLOB RATIO 1.1 (1.0-2.1); ALBUMIN 4.6 g/dL (3.5-5.0); ALT/SGPT 16 U/L (9-52); AST/SGOT 31 U/L (14-36); BLOOD UREA NITROGEN 9 mg/dl (7-17); CALCIUM 9.8 mg/dL (8.4-10.2); GFR NON-AFRICAN AMERICAN > 60
[2019-02-15 19:11] LABS: BARBITURATES, UR NEGATIVE (NEGATIVE); BENZODIAZEPINES, UR NEGATIVE (NEGATIVE); OPIATES, UR NEGATIVE (NEGATIVE); PHENCYCLIDINE, UR NEGATIVE (NEGATIVE)
[2019-02-15 20:01] VITALS: BP 114/76; PULSE 70; RESP 18; TEMP 98
== END 2019-02-15 19:32 | disposition home or self-care (01) ==
LOC: H.ER 15:49
DX: F53.0 Postpartum depression (principal)
CPT/HCPCS: 80053; 81003; 85025; 99283; G0480